=== PATIENT | male | born 1990 | race Caucasian/White ===

== ENCOUNTER 2018-07-17 10:46 | Emergency (ER) | payer BC ==
[~2018-07-17] VITALS: Ht 167.6 cm; Wt 109.1 kg
[2018-07-17] MEDS ORDERED: NS 1,000 ML IV SCH (11:59)
[2018-07-17] MEDS ORDERED: ASPIRIN 81 MG CHEW TABLET PO ONE (12:00)
[2018-07-17 12:14] LABS: BASO % 0.5 % (0.0-1.0); EOS # 0.1 10^3/uL (0.0-0.50); EOS % 1.3 % (0.0-3.0); HEMATOCRIT 49.7 % (42.0-52.0); HEMOGLOBIN 17.1 g/dl (13.5-17.5); LYMPH # 1.6 10^3/uL (1.5-6.5); LYMPH % 25.7 % (24.0-44.0); MEAN CORPUSCULAR HEMOGLOBIN 28.9 pg (27.0-33.0); MEAN CORPUSCULAR HGB CONC 34.4 g/dl (32.0-36.5); MONO # 0.7 10^3/uL (0.0-0.8); MONO % 11.7 % (0.0-5.0); NEUTROPHILS # 3.8 10^3/uL (1.8-7.7); NEUTROPHILS % 60.3 % (36.0-66.0); PLATELET COUNT, AUTOMATED 236 10^3/uL (150-450); RED BLOOD COUNT 5.92 10^6/uL (4.30-6.10); WHITE BLOOD COUNT 6.2 10^3/uL (4.0-10.0)
[2018-07-17 12:25] LABS: INR 0.99; PROTHROMBIN TIME 13.2 SECONDS (12.1-14.4)
[2018-07-17 12:35] LABS: ALBUMIN 4.2 GM/DL (3.2-5.2); ALT/SGPT 52 U/L (12-78); BILIRUBIN,DIRECT 0.1 MG/DL (0.0-0.2); BILIRUBIN,TOTAL 0.5 MG/DL (0.2-1.0); BLOOD UREA NITROGEN 13 MG/DL (7-18); CALCIUM LEVEL 8.7 MG/DL (8.5-10.1); CARBON DIOXIDE LEVEL 26 MEQ/L (21-32); CHLORIDE LEVEL 106 MEQ/L (98-107); CPK CREATINE PHOSPHOKINASE 89 U/L (39-308); CREATININE FOR GFR 0.94 MG/DL (0.70-1.30); FREE T4 0.95 NG/DL (0.76-1.46); GLOMERULAR FILTRATION RATE > 60.0 (>60); GLUCOSE, FASTING 88 MG/DL (70-100); MB/CK RELATIVE INDEX 2.13 (< OR =4); POTASSIUM SERUM 3.9 MEQ/L (3.5-5.1); SODIUM LEVEL 139 MEQ/L (136-145); THYROID STIMULATING HORMONE 0.843 uIU/ML (0.358-3.740); TOTAL PROTEIN 7.4 GM/DL (6.4-8.2); TROPONIN I < 0.02 NG/ML (< 0.10)
[2018-07-17 13:01] VITALS: BP 134/75
--- NOTE | 2018-07-17 13:43 | REP ---
Portable chest, AP view, the patient sitting, 12:00 p.m.: There are no comparisons. The lung bolanos are clear. The cardiac size is normal. The wilmar, mediastinum, and skeletal structures are unremarkable. Impression: Negative portable chest. Electronically Signed by Elias Solitario MD 07/17/2018 01:35 P
--- NOTE | 2018-07-17 17:57 | ECGEPIP ---
Stationary ECG Study [facility] - ED Test Date: 2018-07-17 Pat Name: JOE DAY Department: Room: - Gender: M Dimension Specification Inspector: ELLEN : 1990 Requested By: Rick Araujo Order Number: [id number] Reading MD: Sabi Watkins Measurements Intervals [place] Rate: 74 P: 21 MI: 150 QRS: -8 QRSD: 97 T: -9 QT: 338 QTc: 377 Interpretive Statements SINUS RHYTHM MODERATE VOLTAGE CRITERIA FOR LVH, CONSIDER NORMAL VARIANT EARLY REPOLARIZATION NO PRIOR FOR COMPARISON Electronically Signed On 07-17-2018 17:56:54 EST by Sabi Watkins
== END 2018-07-17 13:06 | disposition home or self-care (01) ==
LOC: M ED 10:46
DX: R00.2 Palpitations (principal)

== ENCOUNTER 2020-06-14 00:04 | Emergency (ER) | payer BC ==
[~2020-06-14] VITALS: Ht 167.6 cm; Wt 97.9 kg
[2020-06-14] MEDS ORDERED: ZONI50CA11 PO (00:12)
[2020-06-14] MEDS ORDERED: LISI10TA22 PO (00:12)
[2020-06-14] MEDS ORDERED: ZONI25CA13 PO (00:12)
--- OUTSIDE RECORDS SUMMARY | 2020-06-14 00:15 | CCD | Continuity of Care Document ---
Author Author Mik EMANUEL M.D. Organization Unknown Address [address] [place] [address] Phone [phone] Care Team Providers Care Water Systems Engineer Name Role Phone Robert Segovia DIRECTOR PROJECT MANAGEMENT-C AUTM [phone] Problems Active Problems Provider Date Headache Melonie Emanuel M.D. Onset: 08/25/2019 Social History Type Date Description Comments Sex Unknown Allergies, Adverse Reactions, Alerts Description No Known Drug Allergies Medications Active Medications SIG Qnty Indications Ordering Provide r Date Imitrex 50mg Tablets take 1 tab at onset of headache; may repeat once after 2 hours if no relief 9tabs Melonie Emanuel M.D. 10/26/2019 Zonisamide 25mg Capsules 1 tab by mouth nightly x 1 week, then 1 tab twice a day x 1 week, then 1 tab morning and 2 tabs nightly 42caps Melonie Emanuel M.D. 10/26/2019 Zonisamide 50mg Capsules 1 by mouth twice a day 60caps Melonie Emanuel M.D. 10/26/2019 Immunizations Description No Information Available Vital Signs Description No Information Available Results Description No Information Available Procedures Date Code Description Status 11/13/2019 46318 Magnetic Resonance Angiography N jojo W/O Contrast Materials Completed 11/13/2019 00885 Magnetic Resonance Angiography N jojo W/O Contrast Materials Completed 11/13/2019 45313 Magnetic Resonance Angiogtaphy H ead W/O Contrast Material(S) Completed 11/13/2019 66964 Magnetic Resonance Angiogtaphy H ead W/O Contrast Material(S) Completed Medical Devices Description No Information Available Encounters Type Date Location Provider Dx Diagnosis Office Visit 04/16/2020 7:00a Main office - [place] E[place] M.[place]. R42 Dizziness and giddiness G43.809 Other migraine, not intracta ble, without status migrainosus M54.81 Occipital neuralgia Office Visit 12/28/2019 8:00a Main office - [place] Melonie Emanuel M.D. R42 Dizziness and giddiness G43.809 Other migraine, not intracta ble, without status migrainosus M54.81 Occipital neuralgia D35.2 Benign neoplasm of pituitary gland Office Visit 10/24/2019 2:45p Main office - [place] Melonie Emanuel M.D. R42 Dizziness and giddiness G47.00 Insomnia, unspecified G43.809 Other migraine, not intracta ble, without status migrainosus I95.1 Orthostatic hypotension E23.6 Other disorders of pituitary gland Assessments Date Code Description Provider 04/16/2020 R42 Dizziness and giddiness Melonie L archana, M.DDustin 04/16/2020 G43.809 Other migraine, not intractable, without status migrainosus Melonie Jenae, M.DDustin 04/16/2020 M54.81 Occipital neuralgia Melonie Jenae , M.DDustin 12/28/2019 R42 Dizziness and giddiness Melonie L archana, M.DDustin 12/28/2019 G43.809 Other migraine, not intractable, without status migrainosus Melonie Jenae, M.D. 12/28/2019 M54.81 Occipital neuralgia Melonie Jenae , M.D. 12/28/2019 D35.2 Benign neoplasm of pituitary gla nd Melonie Emanuel M.DDustin 11/13/2019 R42 Dizziness and giddiness Luisito [place].DDustin 11/13/2019 R42 Dizziness and giddiness MRI 11/13/2019 G43.809 Other migraine, not intractable, without status migrainosus Yadiel Emanuel M.DDustin 11/13/2019 G43.809 Other migraine, not intractable, without status migrainosus MRI 10/24/2019 R42 Dizziness and giddiness Melonie L archana, M.DDustin 10/24/2019 G47.00 Insomnia, unspecified Melonie Lat jessica, M.DDustin 10/24/2019 G43.809 Other migraine, not intractable, without status migrainosus Melonie Jenae, M.D. 10/24/2019 I95.1 Orthostatic hypotension Melonie magaña M.D. 10/24/2019 E23.6 Other disorders of pituitary gla nd Melonie Emanuel M.D. Plan of Treatment No Information Available Functional Status Description No Information Available Mental Status Description No Information Available Referrals Refer to Dr Reason for Referral Status Appt Date Harry Ford M.D. QUESTIONABLE PAPILLEDEMA Created [address] [place] [address] [phone] Created
--- OUTSIDE RECORDS SUMMARY | 2020-06-14 00:15 | CCD | Continuity of Care Document ---
Author Author Mik EMANUEL M.D. Organization Unknown Address [address] [place] [address] Phone [phone] Care Team Providers Care Custom Leather Products Maker Name Role Phone Robert Segovia RESIN FILTERER-Riana AUTM [phone] Problems Active Problems Provider Date Headache Melonie [...] Available Results Description No Information Available Procedures Description No Information Available Medical Devices Description No Information Available Encounters Type Date Location Provider Dx Diagnosis Office Visit 06/04/2020 4:15p Main office - [place] E[place] M.[place]. 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 R42 Dizziness and giddiness G43.809 Other migraine, not intracta ble, without status migrainosus M54.81 Occipital neuralgia Office Visit 12/28/2019 8:00a Main office - [place] Melonie Emanuel M.D. 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 04/16/2020 G43.809 Other migraine, not intractable, without status migrainosus Melonie Jenae, M.DDustin 04/16/2020 M54.81 Occipital neuralgia Melonie Jenae , M.DDustin 12/28/2019 R42 Dizziness and giddiness Melonie L archana, M.D. 12/28/2019 G43.809 Other migraine, not intractable, without status migrainosus Melonie Jenae, M.DDustin 12/28/2019 M54.81 Occipital neuralgia Melonie Jenae , M.DDustin 12/28/2019 D35.2 Benign neoplasm of pituitary gla nd Melonie Emanuel M.D. Plan of Treatment Future Appointment(s):* 08/29/2020 7:00 am - Melonie Emanuel M.D. at Main office - [place] Functional Status Description No Information Available Mental Status Description No Information Available Referrals Description No Information Available
--- OUTSIDE RECORDS SUMMARY | 2020-06-14 00:15 | CCD | Continuity of Care Document ---
Author Author Mik EMANUEL M.D. Organization Unknown Address [address] [place] [address] Phone [phone] Care Team Providers Care Laboratory Secretary Name Role Phone Robert Segovia ABDOUL-Riana AUTM [phone] Problems Active Problems Provider Date Headache Melonie [...] Office Visit 04/16/2020 7:00a Main office - [place] Emanuel M.D. R42 Dizziness and giddiness G43.809 Other migraine, not intracta ble, without status migrainosus M54.81 Occipital neuralgia Office Visit 12/28/2019 8:00a Main office - [place] E[place] M.D. R42 Dizziness and giddiness G43.809 Other migraine, not intracta ble, without status migrainosus M54.81 Occipital neuralgia D35.2 Benign neoplasm of pituitary gland Assessments Date Code Description Provider 04/16/2020 R42 Dizziness and giddiness Melonie magaña M.D. 04/16/2020 G43.809 Other migraine, not intractable, without status migrainosus Kayla HerreraDDustin 04/16/2020 M54.81 Occipital neuralgia Melonie Emanuel M.D. 12/28/2019 R42 Dizziness and giddiness Melonie magaña M.D. 12/28/2019 G43.809 Other migraine, not intractable, without status migrainosus Melonie Emanuel M.D. 12/28/2019 M54.81 Occipital neuralgia Melonie Emanuel M.D. 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 Plan of Treatment Future Appointment(s):* 08/29/2020 7:00 am - Melonie Emanuel M.D. at Main office - [place] Functional Status Description No Information Available Mental Status Description No Information Available Referrals Description No Information Available
--- OUTSIDE RECORDS SUMMARY | 2020-06-14 00:15 | CCD | Continuity of Care Document ---
Author Author Mik EMANUEL M.D. Organization Unknown Address [address] [place] [address] Phone [phone] Care Team Providers Care Bill Recapitulation Clerk Name Role Phone Robert Segovia DIVING FISHER-C AUTM [phone] Problems Active Problems Provider Date Headache Melonie [...] Available Procedures Date Code Description Status 11/13/2019 72836 Magnetic Resonance Angiography N jojo W/O Contrast Materials Completed 11/13/2019 30582 Magnetic Resonance Angiography N jojo W/O Contrast Materials Completed 11/13/2019 58644 Magnetic Resonance Angiogtaphy H ead W/O Contrast Material(S) Completed 11/13/2019 57769 Magnetic Resonance Angiogtaphy H ead W/O Contrast Material(S) Completed 10/18/2019 47967 Sympathetic Skin Responses Compl eted 10/18/2019 61539 Sympathetic Skin Responses Compl eted 10/18/2019 38483 Test Autonomic Nervous System, C ardiovagal Innervation Completed 10/18/2019 24364 Test Autonomic Nervous System, C ardiovagal Innervation Completed Medical Devices Description No Information Available Encounters Type Date Location Provider Dx Diagnosis Office Visit 12/28/2019 8:00a Main office - [place] Melonie Emanuel M.D. R42 Dizziness and giddiness G43.809 Other migraine, not intracta ble, without status migrainosus M54.81 Occipital neuralgia D35.2 Benign neoplasm of pituitary gland Office Visit 10/24/2019 2:45p Main office - [place] Melonie Emanuel M.D. 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 10/24/2019 G47.00 Insomnia, unspecified Melonie Lat jessica, M.DDustin 10/24/2019 G43.809 Other migraine, not intractable, without status migrainosus Melonie Jenae, M.D. 10/24/2019 I95.1 Orthostatic hypotension Melonie L acrhana, M.DDustin 10/24/2019 E23.6 Other disorders of pituitary gla nd Melonie Jenae, M.DDustin 10/18/2019 I95.1 Orthostatic hypotension Melonie magaña M.D. 10/18/2019 I95.1 Orthostatic hypotension Ans/VS 10/18/2019 R00.0 Tachycardia, unspecified Melonie Emanuel M.D. 10/18/2019 R00.0 Tachycardia, unspecified Ans/VS Plan of Treatment No Information Available Functional Status Description No Information Available Mental Status Description No Information Available Referrals Refer to Dr Reason for Referral Status Appt Date Harry Ford M.D. QUESTIONABLE PAPILLEDEMA Created [address] [facility] [address] [place] [address] [phone] Created
--- OUTSIDE RECORDS SUMMARY | 2020-06-14 00:15 | CCD ---
Author Author [facility] Organization [facility] Address Unknown Phone Unavailable Care Team Providers Care Reconsignment Clerk Name Role Phone ETHAN CARTAGENA MD Unavailable Unavailable ETHAN CARTAGENA MD Unavailable Unavailable ETHAN CARTAGENA MD Unavailable Unavailable ETHAN CARTAGENA MD Unavailable Unavailable ETHAN CARTAGENA MD Unavailable Unavailable ETHAN CARTAGENA MD Unavailable Unavailable ETHAN CARTAGENA MD Unavailable Unavailable ETHAN CARTAGENA MD Unavailable Unavailable ETHAN CARTAGENA MD Unavailable Unavailable ETHAN CARTAGENA MD Unavailable Unavailable ETHAN CARTAGENA MD Unavailable Unavailable ETHAN CATRAGENA MD Unavailable Unavailable ETHAN CARTAGENA MD Unavailable Unavailable ETHAN CARTAGENA MD Unavailable Unavailable ETHAN CARTAGENA MD Unavailable Unavailable ETHAN CARTAGENA MD Unavailable Unavailable ETHAN CARTAGENA MD Unavailable Unavailable ETHAN CARTAGENA MD Unavailable Unavailable ETHAN CARTAGENA MD Unavailable Unavailable ETHAN CARTAGENA MD Unavailable Unavailable ETHAN CARTAGENA MD Unavailable Unavailable ETHAN CARTAGENA MD Unavailable Unavailable ETHAN CARTAGENA MD Unavailable Unavailable ETHAN CARTAGENA MD Unavailable Unavailable ETHAN CARTAGENA MD Unavailable Unavailable ETHAN CARTAGENA MD Unavailable Unavailable ETHAN CARTAGENA MD Unavailable Unavailable ETHAN CARTAGENA MD Unavailable Unavailable ETHAN CARTAGENA MD Unavailable Unavailable ETHAN CARTAGENA MD Unavailable Unavailable ETHAN CARTAGENA MD Unavailable Unavailable ETHAN CARTAGENA MD Unavailable Unavailable ETHAN CARTAGENA MD Unavailable Unavailable ETHAN CARTAGENA MD Unavailable Unavailable ETHAN CARTAGENA MD Unavailable Unavailable ETHAN CARTAGENA MD Unavailable Unavailable ETHAN CARTAGENA MD Unavailable Unavailable ETHAN CARTAGENA MD Unavailable Unavailable ETHAN CARTAGENA MD Unavailable Unavailable ETHAN CARTAGENA MD Unavailable Unavailable Viviana Conroy MD Unavailable Unavailable Viviana Conroy MD Unavailable Unavailable Viviana Conroy MD Unavailable Unavailable Viviana Conroy MD Unavailable Unavailable Viviana Conroy MD Unavailable Unavailable Viviana Conroy MD Unavailable Unavailable Viviana Conroy MD Unavailable Unavailable Viviana Conroy MD Unavailable Unavailable Viviana Conroy MD Unavailable Unavailable Rafiq O Fawadah Unavailable Unavailable Viviana Conroy MD Unavailable Unavailable Viviana Conroy MD Unavailable Unavailable Viviana Conroy MD Unavailable Unavailable Viviana Conroy MD Unavailable Unavailable Viviana Conroy MD Unavailable Unavailable Viviana Conroy MD Unavailable Unavailable Viviana Conroy MD Unavailable Unavailable Viviana Cornoy MD Unavailable Unavailable Viviana Conroy MD Unavailable Unavailable Viviana Conroy MD Unavailable Unavailable Viviana Conroy MD Unavailable Unavailable Viviana Conroy MD Unavailable Unavailable Viviana Conroy MD Unavailable Unavailable Viviana Conroy MD Unavailable Unavailable Viviana Conroy MD Unavailable Unavailable Viviana Conroy MD Unavailable Unavailable Viviana Conroy MD Unavailable Unavailable Viviana Conroy MD Unavailable Unavailable Viviana Conroy MD Unavailable Unavailable Viviana Conroy MD Unavailable Unavailable Viviana Conroy MD Unavailable Unavailable Viviana Conroy MD Unavailable Unavailable Viviana Conroy MD Unavailable Unavailable Viviana Conroy MD Unavailable Unavailable Viviana Conroy MD Unavailable Unavailable Viviana Conroy MD Unavailable Unavailable Viviana Conroy MD Unavailable Unavailable Viviana Conroy MD Unavailable Unavailable Viviana Conroy MD Unavailable Unavailable Viviana Conroy MD Unavailable Unavailable Viviana Conroy MD Unavailable Unavailable Viviana Conroy MD Unavailable Unavailable Viviana Conroy MD Unavailable Unavailable Viviana Conroy MD Unavailable Unavailable Viviana Conroy MD Unavailable Unavailable Viviana Conroy MD Unavailable Unavailable Viviana Conroy MD Unavailable Unavailable Viviana Conroy MD Unavailable Unavailable Viviana Conroy MD Unavailable Unavailable Viviana Conroy MD Unavailable Unavailable Viviana Conroy MD Unavailable Unavailable Viviana Conroy MD Unavailable Unavailable Viviana Conroy MD Unavailable Unavailable Viviana Conroy MD Unavailable Unavailable Viviana Conroy MD Unavailable Unavailable Viviana Conroy MD Unavailable Unavailable Viviana Conroy MD Unavailable Unavailable Viviana Conroy MD Unavailable Unavailable Viviana Conroy MD Unavailable Unavailable Viviana Conroy MD Unavailable Unavailable Viviana Conroy MD Unavailable Unavailable Viviana Conroy MD Unavailable Unavailable Viviana Conroy MD Unavailable Unavailable Viviana Conroy MD Unavailable Unavailable Viviana Conroy MD Unavailable Unavailable Viviana Conroy MD Unavailable Unavailable Viviana Conroy MD Unavailable Unavailable Viviana Conroy MD Unavailable Unavailable Viviana Conroy MD Unavailable Unavailable Viviana Conroy MD Unavailable Unavailable Viviana Conroy MD Unavailable Unavailable Viviana Conroy MD Unavailable Unavailable Viviana Conroy MD Unavailable Unavailable Viviana Conroy MD Unavailable Unavailable Viviana Conroy MD Unavailable Unavailable Viviana Conroy MD Unavailable Unavailable DAVID IV, L PATTI VEHICLE DISMANTLER Unavailable Unavailable DAVID IV, L PATTI VEHICLE DISMANTLER Unavailable Unavailable DAVID IV, L PATTI VEHICLE DISMANTLER Unavailable Unavailable DAVID IV, L PATTI VEHICLE DISMANTLER Unavailable Unavailable DAVID IV, L PATTI VEHICLE DISMANTLER Unavailable Unavailable DAVID IV, L PATTI VEHICLE DISMANTLER Unavailable Unavailable DAVID IV, L PATTI VEHICLE DISMANTLER Unavailable Unavailable DAVID IV, L PATTI VEHICLE DISMANTLER Unavailable Unavailable DAVID IV, L PTATI VEHICLE DISMANTLER Unavailable Unavailable DAVID IV, L PATTI VEHICLE DISMANTLER Unavailable Unavailable DAVID IV, L PATTI VEHICLE DISMANTLER Unavailable Unavailable DAVID IV, L PATTI VEHICLE DISMANTLER Unavailable Unavailable DAVID IV, L PATTI VEHICLE DISMANTLER Unavailable Unavailable DAVID IV, L PATTI VEHICLE DISMANTLER Unavailable Unavailable DAVID IV, L PATTI VEHICLE DISMANTLER Unavailable Unavailable DAVID IV, L PATTI VEHICLE DISMANTLER Unavailable Unavailable DAVID IV, L PATTI VEHICLE DISMANTLER Unavailable Unavailable DAVID IV, L PATTI VEHICLE DISMANTLER Unavailable Unavailable DAVID IV, L PATTI VEHICLE DISMANTLER Unavailable Unavailable DAVID IV, L PATTI VEHICLE DISMANTLER Unavailable Unavailable DAVID IV, L PATTI VEHICLE DISMANTLER Unavailable Unavailable DAVID IV, L PATTI VEHICLE DISMANTLER Unavailable Unavailable DAVID IV, L PATTI VEHICLE DISMANTLER Unavailable Unavailable DAVID IV, L PATTI VEHICLE DISMANTLER Unavailable Unavailable DAVID IV, L PATTI VEHICLE DISMANTLER Unavailable Unavailable DAVID IV, L PATTI VEHICLE DISMANTLER Unavailable Unavailable DAVID IV, L PATTI VEHICLE DISMANTLER Unavailable Unavailable DAVID IV, L PATTI VEHICLE DISMANTLER Unavailable Unavailable DAVID IV, L PATTI VEHICLE DISMANTLER Unavailable Unavailable DAVID IV, L PATTI VEHICLE DISMANTLER Unavailable Unavailable DAVID IV, L PATTI VEHICLE DISMANTLER Unavailable Unavailable DAVID IV, L PATTI VEHICLE DISMANTLER Unavailable Unavailable Edward Capellan MD Unavailable Unavailable Edward Capellan MD Unavailable Unavailable Re-disclosure Warning The records that you are about to access may contain information from federally-assisted alcohol or drug abuse programs. If such information is present, then the following federally mandated warning applies: This information has been disclosed to you from records protected by federal confidentiality rules (42 CFR part 2). The federal rules prohibit you from making any further disclosure of this information unless further disclosure is expressly permitted by the written consent of the person to whom it pertains or as otherwise permitted by 42 CFR part 2. A general authorization for the release of medical or other information is NOT sufficient for this purpose. The Federal rules restrict any use of the information to criminally investigate or prosecute any alcohol or drug abuse patient.The records that you are about to access may contain highly sensitive health information, the redisclosure of which is protected by Article 27-F of the [facility] Public Health law. If you continue you may have access to information: Regarding HIV / AIDS; Provided by facilities licensed or operated by the [facility] Office of Mental Health; or Provided by the [facility] Office for People With Developmental Disabilities. If such information is present, then the following [facility] mandated warning applies: This information has been disclosed to you from confidential records which are protected by state law. State law prohibits you from making any further disclosure of this information without the specific written consent of the person to whom it pertains, or as otherwise permitted by law. Any unauthorized further disclosure in violation of state law may result in a fine or long-term sentence or both. A general authorization for the release of medical or other information is NOT sufficient authorization for further disc losure. Family History Family Member Name Family Member Gender Family Member Status Date o f Status Description Data Source(s) Unknown Male Problem [facility] ([facility]) Encounters Encounter Providers Location Date Indications Data Source(s ) Office Visit Attender: ETHAN CARTAGENA MD Main office - [facility] n 06/04/2020 03:15:00 PM EST [facility] ([facility]) Outpatient Attender: ETHAN CARTAGENA MD Main office - [facility] n 04/16/2020 06:00:00 AM EST [facility] ([facility]) Outpatient Attender: ETHAN CARTAGENA MD Main office - [facility] n 12/28/2019 08:00:00 AM EDT [facility] ([facility]) Outpatient Attender: ETHAN CARTAGENA MD Main office - [facility] n 10/24/2019 02:45:00 PM EDT [facility] ([facility]) Outpatient [facility]PS[facility]ORT-LABEJN 10/19/2019 08:04:00 PM EDT [facility] Outpatient Attender: Jayro Conroy MD ED-LAB 03:53:00 PM EDT - 10/19/2019 03:54:[address] [facility] HEADACHES Patient discharged. Emergency Attender: Dong Capellan MD CPSCAORT-ED 08/07/19 08:52:00 PM EDT - 08/07/2019 10:57:00 PM EDT NAUSEA, DIARRHEA, ABDOMINAL PAIN [facility] NAUSEA, DIARRHEA, ABDOMINAL PAIN Patient discharged. Outpatient Attender: PATTI SEGOVIA IV ED-[facility]EDWPCP 2019 07:37:00 AM EST - 07/04/2019 07:38:[address] [facility] Patient discharged. Medications Medication Brand Name Start Date Product Form Dose Route Admi nistrative Instructions Pharmacy Instructions Status Indications Reaction Description Data Source(s) 50 mg 04/06/2020 12:00:00 AM EST capsule 60 TAKE ONE CAPSULE BY MOUTH TWICE A DAY TAKE ONE CAPSULE BY MOUTH TWICE A DAY SOLD: 04/14/2020 [facility] 50 mg 04/06/2020 12:00:00 AM EST capsule 60 TAKE ONE CAPSULE BY MOUTH TWICE A DAY TAKE ONE CAPSULE BY MOUTH TWICE A DAY SOLD: 05/13/2020 [facility] 50 mg 02/14/2020 12:00:00 AM EDT capsule 60 TAKE ONE CAPSULE BY MOUTH TWICE A DAY TAKE ONE CAPSULE BY MOUTH TWICE A DAY SOLD: 03/14/2020 [facility] 50 mg 02/14/2020 12:00:00 AM EDT capsule 60 TAKE ONE CAPSULE BY MOUTH TWICE A DAY TAKE ONE CAPSULE BY MOUTH TWICE A DAY SOLD: 02/14/2020 [facility] 50 mg 10/27/2019 12:00:00 AM EDT tablet 9 TAKE ONE TABLET BY MOUTH AT ONSET OF HEADACHE, MAY REPEAT ONCE AFTER 2 HOURS IF NO RELIEF MAXIMUM DAILY DOSE = 2 TABLETS TAKE ONE TABLET BY MOUTH AT ONSET OF HEA DACHE, MAY REPEAT ONCE AFTER 2 HOURS IF NO RELIEF MAXIMUM DAILY DOSE = 2 TABLETS SOLD: 02/24/2020 [facility] 25 mg 10/27/2019 12:00:00 AM EDT capsule 42 TAKE ONE CAPSULE BY MOUTH NIGHTLY FOR 1 WEEK THEN 1 TWO TIMES A DAY FOR 1 WEEK THEN 1 IN THE MORNING AND 2 NIGHTLY TAKE ONE CAPSULE BY MOUTH NIGHTLY FOR 1 WEEK THEN 1 TWO TIMES A DAY FOR 1 WEEK THEN 1 IN THE MORNING AND 2 NIGHTLY SOLD: 10/30/2019 [facility] 50 mg 10/27/2019 12:00:00 AM EDT capsule 60 TAKE ONE CAPSULE BY MOUTH TWICE A DAY TAKE ONE CAPSULE BY MOUTH TWICE A DAY SOLD: 01/15/2020 [facility] 50 mg 10/27/2019 12:00:00 AM EDT capsule 60 TAKE ONE CAPSULE BY MOUTH TWICE A DAY TAKE ONE CAPSULE BY MOUTH TWICE A DAY SOLD: 10/30/2019 [facility] 50 mg 10/27/2019 12:00:00 AM EDT tablet 9 TAKE ONE TABLET BY MOUTH AT ONSET OF HEADACHE, MAY REPEAT ONCE AFTER 2 HOURS IF NO RELIEF MAXIMUM DAILY DOSE = 2 TABLETS TAKE ONE TABLET BY MOUTH AT ONSET OF HEA DACHE, MAY REPEAT ONCE AFTER 2 HOURS IF NO RELIEF MAXIMUM DAILY DOSE = 2 TABLETS SOLD: 10/30/2019 [facility] Sumatriptan 50 MG Oral Tablet [Imitrex] Imitrex 10/26/2019 12:00:0 0 AM EDT active [facility] ([facility]) zonisamide 50 MG Oral Capsule Zonisamide 10/26/2019 12:00:00 AM EDT ORAL active [facility] ([facility]) zonisamide 25 MG Oral Capsule Zonisamide 10/26/2019 12:00:00 AM EDT ORAL active [facility] ([facility] 10 mg 09/05/2019 12:00:00 AM EDT tablet 30 TAKE ONE TABLET BY MOUTH EVERY DAY TAKE ONE TABLET BY MOUTH EVERY DAY SOLD: 09/18/2019 [facility] 10 mg 09/05/2019 12:00:00 AM EDT tablet 30 TAKE ONE TABLET BY MOUTH EVERY DAY TAKE ONE TABLET BY MOUTH EVERY DAY SOLD: 12/25/2019 [facility] 10 mg 09/05/2019 12:00:00 AM EDT tablet 30 TAKE ONE TABLET BY MOUTH EVERY DAY TAKE ONE TABLET BY MOUTH EVERY DAY SOLD: 11/16/2019 [facility] 10 mg 09/05/2019 12:00:00 AM EDT tablet 30 TAKE ONE TABLET BY MOUTH EVERY DAY TAKE ONE TABLET BY MOUTH EVERY DAY SOLD: 04/14/2020 [facility] 10 mg 09/05/2019 12:00:00 AM EDT tablet 30 TAKE ONE TABLET BY MOUTH EVERY DAY TAKE ONE TABLET BY MOUTH EVERY DAY SOLD: 03/14/2020 [facility] 10 mg 09/05/2019 12:00:00 AM EDT tablet 30 TAKE ONE TABLET BY MOUTH EVERY DAY TAKE ONE TABLET BY MOUTH EVERY DAY SOLD: 05/13/2020 [facility] 25 mg 08/25/2019 12:00:00 AM EDT tablet 9 TAKE ONE TABLET BY MOUTH AT ONSET OF HEADACHE, MAY REPEAT IN TWO HOURS IF NECESSARY TAKE ONE TABLET BY MOUTH AT ONSET OF HEADACHE, MAY REPEAT IN TWO HOURS IF NECESSARY SOLD: 09/18/2019 [facility] 25 mg 08/25/2019 12:00:00 AM EDT tablet 9 TAKE ONE TABLET BY MOUTH AT ONSET OF HEADACHE, MAY REPEAT IN TWO HOURS IF NECESSARY TAKE ONE TABLET BY MOUTH AT ONSET OF HEADACHE, MAY REPEAT IN TWO HOURS IF NECESSARY SOLD: 08/25/2019 [facility] Sumatriptan 25 MG Oral Tablet [Imitrex] Imitrex 08/25/2019 12:00:0 0 AM EDT completed [facility] ([facility]) 10 mg 08/08/2019 12:00:00 AM EDT capsule 25 TAKE ONE CAPSULE BY MOUTH EVERY 6 HOURS NEEDED TAKE ONE CAPSULE BY MOUTH EVERY 6 HOURS NEEDED SOLD : 08/25/2019 [facility] 4 mg 08/08/2019 12:00:00 AM EDT tablet,disintegrating 1 2 DISSOLVE ONE TABLET ON TONGUE FOUR TIMES A DAY NEEDED DISSOLVE ONE TABLET ON TONGUE FOUR TIMES A DAY NEEDED SOLD: 08/25/2019 [facility] 10 mg 07/18/2019 12:00:00 AM EST tablet 30 TAKE ONE TABLET BY MOUTH EVERY DAY TAKE ONE TABLET BY MOUTH EVERY DAY SOLD: 07/18/2019 [facility] Insurance Providers Payer name Policy type / Coverage type Policy ID Covered constitution party ID Covered constitution party's relationship to barreto Policy [place] Plan Information [employer] [place] 302/307 [id number] SP [id number] [employer] [employer] [place] [id number] S [id number] [employer] [place] 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 SELF PAY manager rn case employed [employer] [place] [id number] S [id number] [employer] [id number] Self [id number] OTHER [id number] manager rn case employed [employer] [id number] Self [id number] [employer] [id number] Self [id number] [employer] [place] P[place] 302/307 [id number] SP [id number] Problems, Conditions, and Diagnoses Code Display Name Description Problem Type Effective Dates Data Source(s) [id number] Headache Headache Problem 08/25/2019 12:00:00 AM ED T [facility] ([facility]) R51 Headache HEADACHE Diagnosis 10/19/2019 03:53:[address] [facility] I10 Essential (primary) hypertension ESSENTIAL (PRIMARY) H YPERTENSION Diagnosis 07/04/2019 07:37:00 AM [facility] G44.201 Tension-type headache, unspecified, intr actable TENSION-TYPE HEADACHE, UNSPECIFIED, INTRACTABLE Diagnosis 07/04/2019 07:37:00 AM [facility] Surgeries/Procedures Procedure Description Date Indications Data Source(s) Magnetic Resonance Angiogtaphy Head W/O Contrast Material(S) 11/13/2019 12:00:00 AM EDT [facility] ([facility] Magnetic Resonance Angiogtaphy Head W/O Contrast Material(S) 11/13/2019 12:00:00 AM EDT [facility] ([facility] Magnetic Resonance Angiography Neck W/O Contrast Materials 11/13/2019 12:00:00 AM [facility] ([facility] Magnetic Resonance Angiography Neck W/O Contrast Materials 11/13/2019 12:00:00 AM T [facility] ([facility] ) THYROID STIMULATING HORMONE TSH ASSAY THYROID STIM HORMONE 0 10/19/2019 12:00:00 AM [facility] ANTINUCLEAR ANTIBODIES JUANITO ANTINUCLEAR ANTIBODIES 10/19/2019 12:00: 00 AM [facility] 25 HYDROXY INCLUDES FRACTIONS IF PERFORMED VITAMIN D 25 HYDR OXY 10/19/2019 12:00:00 AM [facility] RHEUMATOID FACTOR QUANTITATIVE RHEUMATOID FACTOR QUANT 10/18 12:00:00 AM [facility] COLLECTION VENOUS BLOOD VENIPUNCTURE ROUTINE VENIPUNCTURE 12:00:00 AM [facility] SEDIMENTATION RATE RBC NON-AUTOMATED RBC SED RATE NONAUTOMAT ED 10/19/2019 12:00:00 AM [facility] BLOOD COUNT COMPLETE AUTO&AUTO DIFRNTL WBC COUNT COMPLETE CB C W/AUTO DIFF WBC 10/19/2019 12:00:00 AM [facility] COMPREHENSIVE METABOLIC PANEL COMPREHEN METABOLIC PANEL 09/22 12:00:00 AM [facility] TSTG ANS FUNCJ CARDIOVAGAL INNERVAJ PARASYMP 0 12:00:00 AM EDT [facility] ([facility] TSTG ANS FUNCJ CARDIOVAGAL INNERVAJ PARASYMP 0 12:00:00 AM EDT [facility] ([facility] ) TESTING AUTONOMIC NERVOUS SYSTEM FUNCTION 10/18/2019 1 2:00:00 AM [facility] ([facility] ) TESTING AUTONOMIC NERVOUS SYSTEM FUNCTION 10/18/2019 [facility] MRI BRAIN BRAIN STEM W/O CONTRAST MATERIAL 08/28/2019 12:00:00 AM EDT [facility] ([facility] ) MRI BRAIN BRAIN STEM W/O CONTRAST MATERIAL 08/28/2019 [facility] CT ABDOEN & PELVIS W/CONTRAST MATERIAL 08/07/2019 12:0 0:[address] [facility] Low osmolar contrast material, 300-399 mg/ml iodine concentr ation, per ml 08/07/2019 12:00:[address] [facility] URNLS DIP STICK/TABLET REAGENT AUTO MICROSCOPY 020 12:00:[address] [facility] BLOOD COUNT COMPLETE AUTO&AUTO DIFRNTL WBC COUNT 08/06 12:00:[address] [facility] MAGNESIUM 08/07/2019 12:00:00 AM [facility] C-REACTIVE PROTEIN 08/07/2019 12:00:[address] [facility] LIPASE 08/07/2019 12:00:00 AM [facility] COMPREHENSIVE METABOLIC PANEL 08/07/2019 12:00:00 AM [facility] Injection, acetaminophen, 10 mg 08/07/2019 12:00:[address] [facility] Non-covered item or service 08/07/2019 12:00:[address] [facility] Injection, morphine sulfate, up to 10 mg 08/07/2019 12 :00:[address] [facility] THERAPEUTIC INJECTION IV PUSH EACH NEW DRUG 08/07/2019 12:00:[address] [facility] THER PROPH/DX NJX IV PUSH SINGLE/1ST SBST/DRUG 020 12:00:[address] [facility] EMERGENCY DEPARTMENT VISIT HIGH/URGENT SEVERITY 2019 12:00:[address] [facility] OFFICE OUTPATIENT VISIT 10 MINUTES OFFICE/OUTPATIENT VISIT E ST 07/04/2019 12:00:[address] [facility] Results ID Date Data Source [id number] 10/23/2019 03:58:00 PM [facility] Name Value Range Interpretation Code Description Data Mia rce(s) Supporting Document(s) JUANITO Interpretation Result Negative Normal (applies to no n-numeric results) [facility] Results were obtained with the [employer] NOV A Lite HEp-2 JUANITO Kit by indirect immunofluorescence. Test performed or referred by The [address] [address] ID Date Data Source [id number] 10/23/2019 03:14:00 PM EDT [facility] Name Value Range Interpretation Code Description Data Mia rce(s) Supporting Document(s) JUANITO Interpretation Result Negative Normal (applies to no n-numeric results) [facility] Results were obtained with the [employer] NOV A Lite HEp-2 JUANITO Kit by indirect immunofluorescence. Test performed or referred by The [address] [address] ID Date Data Source [id number] 10/20/2019 10:18:00 AM EDT [facility] Value Range Interpretation Code Description Data Mia rce(s) Supporting Document(s) Vitamin D, Total 30.0-100.0 Below low normal [facility] ID Date Data Source [id number] 10/20/2019 07:35:[address] [facility] Name Value Range Interpretation Code Description Data Mia rce(s) Supporting Document(s) RF Rheumatoid Factor result 0.0-15.0 Normal (appli es to non-numeric results) [facility] Test Performed By: [facility] [address] [place] [address] Director: Shireen Shannon MD ID Date Data Source [id number] 10/19/2019 10:21:00 PM EDT [facility] Value Range Interpretation Code Description Data Mia rce(s) Supporting Document(s) Rheumatoid Factor 0.0-15.0 Normal (applies to non-numeri c results) [facility] Test Performed By: [facility] [address] [place] [address] Director: Shireen Shannon MD ID Date Data Source [id number] 10/19/2019 04:54:00 PM EDT [facility] Value Range Interpretation Code Description Data Mia rce(s) Supporting Document(s) Sodium 140 mmol/L 136-145 Normal (applies to non-numeric resul ts) [facility] Potassium 3.5-5.1 Normal (applies to non-numeric resul ts) [facility] Chloride 104 mmol/L 98-107 Normal (applies to non-numeric resul ts) [facility] Carbon Dioxide CO2 21-32 Normal (applies to non-numer ic results) [facility] Anion Gap 5.0-16.0 Normal (applies to non-numeric resul ts) [facility] BUN 24 mg/dL 7-18 Above high normal [facility] Creatinine,Serum 0.8-1.5 Normal (applies to non-numeric results) [facility] GFR >60 Normal (applies to non-numeric results) [facility] Glucose Level 94 mg/dL 60-99 Normal (applies to non-numeric re sults) [facility] Reference range is only applicable when patient is fasting Note the following drug interference: Sulfasalazine Sulfapyridine Can see falsely depressed Can see falsely elevated result with up to 17% results with up to 11% decrease in measurement increase in measurement Recommend patients be collected for this test prior to administration of either drug. Calcium 8.5-10.1 Normal (applies to non-numeric resul ts) [facility] Bilirubin,Total 0.1-1.9 Normal (applies to non-numeric results) [facility] SGOT(AST) 19 U/L 15-37 Normal (applies to non-numeric resul ts) [facility] Note the following drug interference: Sulfasalazine Sulfapyridine Can see falsely depressed Can see falsely elevated result with up to 10% results with up to 10% decrease in measurement increase in measurement Recommend patients be collected for this test prior to administration of either drug. SGPT(ALT) 47 U/L 12-78 Normal (applies to non-numeric resul ts) [facility] Note the following drug interference: Sulfasalazine Sulfapyridine Can see falsely depressed Can see falsely elevated result with up to 29% results with up to 10% decrease in measurement increase in measurement Recommend patients be collected for this test prior to administration of either drug. Alkaline Phosphatase 45 U/L 38-126 Normal (applies to non-num mauricio results) [facility] can increase Alkaline Phosp le vels up to 2 times the normal adult value. Normal values for children and adolescents are 2 to 3 times the normal adult value. Total Protein 6.0-8.2 Normal (applies to non-numeric re sults) [facility] Albumin Level 3.4-5.0 Normal (applies to non-numeric re sults) [facility] ID Date Data Source [id number] 10/19/2019 04:54:[address] [facility] Name Value Range Interpretation Code Description Data Mia rce(s) Supporting Document(s) Thyroid Stimulate Hormone TSH 0.358-3.74 No rmal (applies to non-numeric results) [facility] ID Date Data Source [id number] 10/19/2019 04:48:[address] [facility] Name Value Range Interpretation Code Description Data Mia rce(s) Supporting Document(s) White Blood Count 3.5-10.5 Normal (applies to non-numeri c results) [facility] Red Blood Count 4.30-5.70 Normal (applies to non-numeric results) [facility] Hemoglobin 13.5-17.5 Normal (applies to non-numeric resul ts) [facility] Hematocrit 38.8-50.0 Normal (applies to non-numeric resul ts) [facility] Mean Corpuscular Volume 81.2-95.1 Normal (applies to non- numeric results) [facility] Mean Corpuscular Hgb 25.6-32.2 Normal (applies to non-num mauricio results) [facility] Mean Corpuscular Hgb Conc 32.0-36.0 Normal (applies to no n-numeric results) [facility] Red Cell Distribution Width 11.8-15.6 Normal (appli es to non-numeric results) [facility] Platelet Count 212 x10 3/uL 150-450 Normal (applies to non-numeric results) [facility] Mean Platelet Volume 9.4-12.4 Normal (applies to non-num mauricio results) [facility] Neutrophils% (Auto) 31.0-71.0 Normal (applies to non-nume ana results) [facility] Lymphocytes% (Auto) 20.0-55.0 Normal (applies to non-nume ana results) [facility] Monocytes% (Auto) 4.0-12.0 Normal (applies to non-numeri c results) [facility] Eosinophils% (Auto) 1.0-8.0 Normal (applies to non-nume ana results) [facility] Basophils% (Auto) 0.0-2.0 Normal (applies to non-numeri c results) [facility] Immature Granulocytes% (Auto) 0.0-2.0 Normal (chaz lies to non-numeric results) [facility] Neutrophils# (Auto) 1.50-6.20 Normal (applies to non-nume ana results) [facility] Lymphocytes# (Auto) 1.20-4.00 Normal (applies to non-nume ana results) [facility] Monocytes# (Auto) 0.00-0.90 Normal (applies to non-numeri c results) [facility] Eosinophils# (Auto) 0.00-0.50 Normal (applies to non-nume ana results) [facility] Basophils# (Auto) 0.00-0.20 Normal (applies to non-numeri c results) [facility] Immature Granulocytes# (Auto) 0.00-7.00 No rmal (applies to non-numeric results) [facility] ID Date Data Source [id number] 10/19/2019 04:48:[address] [facility] Name Value Range Interpretation Code Description Data Mia rce(s) Supporting Document(s) Erythrocyte Sedimentation rate 1 mm/hr 0-15 N ormal (applies to non-numeric results) [facility] ID Date Data Source [id number] 08/07/2019 08:52:[address] [facility] Name: MIK TREVINO [facility] Rec #: [id number] 57 : 1990 Age/Sex: 28M Date of Service: 08/07/19 DISPOSITION SUMMARY Discharge Summary [facility] Name:Mik Trevino Emergency Department Age:28 yrs Sex:Male :1990 Arrival:08/07/2019 20:52 Departure Date08/07/2019 Departure Time22:57 Private MD:None, Primary Care Provider- Outcome: Discharge Location: Home/Self Care Condition: Good Chief Complaint: Nausea, Diarrhea, Abdominal Pain Diagnosis: Abdominal pain, Gastroenteritis Prescriptions: Bentyl 10 mg Oral Capsule - take 1 capsule by ORAL route every 6 hours As needed; 25 capsule, ondansetron 4 mg Oral - take 4 milligram by SUBLINGUAL route 4 times per day As needed; 12 tablet Custom Notes: <span>Today you were seen in the emergency department for your <span>abdominal</span>. We did <span>labs</span><span> as well as a CAT scan</span>. Your results were not concerning for a medical emergency, because of this you can be discharged to follow-up with your primary care physician tomorrow, or as soon as you are able to. As we discussed please return to the emergency department for any new, worsening, or continued symptoms. </span> Attending Physician: Dong Capellan MD Private MD: None, Primary Care Provider- Mid Level Provider: Orders: Cbc With Auto Differential, COMMET, C-Reactive Protein,Wide Range, Magnesium, Lipase, UA., Ct Abdomen & Pelvis with Con, Ofirmev, NS 0.9%, Collect Urine - Clean Catch, morphine, Urinalysis Auto w/Microscopy, Dicyclomine Discharge Instruction: Discharge Summary Sheet, Abdominal Pain, Adult, [id number], Medication Reconciliation Name Value Range Interpretation Code Description Data Mia rce(s) Supporting Document(s) ID Date Data Source [id number] 08/07/2019 08:52:00 PM EDT [facility] Name: MIK TREVINO [facility] Rec #: [id number] 59 : 1990 Age/Sex: 28M Date of Service: 08/07/19 PHYSICIAN CHART Physician Documentation [facility] Name: Mik Trevino Age: 28 yrs Sex: Male : 1990 Arrival Date: 08/07/2019 Time: 20:52 Bed 7 Private MD: None, Primary Care Provider- ED Physician Dong Capellan HPI: 08/06 21:15 This 28 yrs old Male presents to ER via [facility] with complaints of Nausea, Diarrhea, Abdominal Pain. 21:15 Patient 28-year-old male history of hypertension presenting aaq w ith nausea vomiting and abdominal pain. Patient states that approximately 4 PM he was driving home from work when he suddenly developed abdominal pain. He describes as periumbilical, stabbing, nonradiating pain made better with the medication nothing making it worse. He got home he had several episodes of watery diarrhea and then began vomiting at around 6:30 PM. No blood noted in the vomit or the diarrhea. Denies any recent travel, new restaurants or foods. No sick contacts. Patient's pain is improved after Toradol was given by EMS he was also given Zofran as well. Never had pain like this before.. Historical: - Allergies: No known drug Allergies; - Home Meds: 1. lisinopril 10 mg Oral tab 1 tab once daily (Last dose: Unknown) - PMHx: Hypertensive disorder; - PSHx: None; - Med Reconciliation:: Green Alert: The patient's med list is complete to the best of the nurse's/provider's knowledge. Medications reviewed, completed by nurse using patient's med list. - Immunization history: unknown. - Advance directive: There is no existing advanced directive. Information offered. - Family History:: mother : unknown medical history. Father : unknown medical history. - Social History: Smoking status (Tobacco): Patient states he/she has never smoked tobacco. Preferred Language: Latvian. ROS: 21:16 Constitutional: A 10 point review of systems was completed aaq and negative with the exception of what is documented in the HPI. Exam: 21:16 Constitutional: General: Well-appearing in no obvious aaq distress Head: Normocephalic, atraumatic Neck: Supple, no meningismus Chest: Atraumatic, nontende r Cardiovascular: Normal rate and rhythm, no murmurs rubs or gallops Pulmonary: No respiratory distress, satting well on room air, clear to auscultation bilaterally Abdomen/: Soft, significant left lower quadrant tenderness without rebound or guarding Extremities: Nontender, full range of motion Neuro: Alert and oriented Skin: No rashes Vital Signs: 21:03 BP 113 / 69; Pulse 99; Resp 18; Temp 97.8; Pulse Ox 99% on kl1 R/A; Weight 99.79 kg; Height 5 ft. 6 in. (167.64 cm); 22:19 BP 127 / 75; Pulse 92; Resp 16; Pulse Ox 98% on R/A; kl1 21:03 Body Mass Index 35.51 (99.79 kg, 167.64 cm) kl1 MDM: 20:53 Patient medically screened. aaq 21:16 ED course: Patient is a 28-year-old male history of aaq hypertension presenting with abdominal pain nausea and diarrhea. Concern is for possible gastroenteritis however significant tenderness on exam. Will check basic labs, fluids as well as a CT of the abdomen pelvis.. 22:40 Data reviewed: vital signs, lab test result(s), radiologic aaq studies. Counseling: I had a detailed discussion with the patient and/or guardian regarding: lab results, radiology results, diagnosis, the need for outpatient follow up, to return to the emergency department if symptoms worsen or persist or if there are any questions or concerns that arise at home. ED course: Patient with adequate improvement in pain here, did have an episode of diarrhea here. Labs are reassuring with exception of slight white count likely hemoconcentrated. He did receive a liter of fluids and ketones in his urine. CAT scan showed fluid filled loops of bowel related to enteritis versus ileus. Given the no nbilious vomiting as well as multiple episodes of diarrhea here likely secondary to gastroenteritis. He has not had a history of surgeries in the abdomen, no transition point is seen and he is still passing stool here therefore less likely obstruction. Given that he is well-appearing with normal vitals will be discharged follow-up as an outpatient. He understands and agrees to this plan.. 08/06 21:06 Order name: Cbc With Auto Differential; Complete Time: 22:12aaq 08/06 22:12 Interpretation: WBC 14.6; RBC 6.13; HGB 17.9; HCT 50.1; MCV aaq 81.7; MCH 29.2; MCHC 35.7; RDW 11.8; PLT 210; MPV 10.4; ImmGran% (AUTO) 0; Neut% (AUTO) 86; Lymph% (AUTO) 4; [place]% (AUTO) 9; Eos% (AUTO) 0; Baso% (AUTO) 0; ImmGran# (AUTO) 0.06; Neut# (AUTO) 12.6; Lymph# (AUTO) 0.5; [place]# (AUTO) 1.4; Eos# (AUTO) 0.0; Baso# (AUTO) 0.04. 08/06 21:06 Order name: COMMET; Complete Time: 22:12 aaq 08/06 22:13 Interpretation: NA 137; K 4.0; CL 107; CO2 23.0; GAP 7.0; aaq BUN 21; CREAT 0.91; Glom Filtration > 90; GLU 119; CA 9.2; Corrected CA 8.7; T Bili 0.7; SGOT(AST) 20; SGPT(ALT) 49; ALK PHOS 58; TP 7.9; ALB 4.6. 08/06 21:06 Order name: C-Reactive Protein,Wide Range; Complete Time: aaq 22:12 08/06 22:13 Interpretation: CRP-wr < 2.90. aaq 08/06 21:06 Order name: Magnesium; Complete Time: 22:12 aaq 08/06 22:13 Interpretation: MG 1.80. aaq 08/06 21:06 Order name: Lipase; Complete Time: 22:12 aaq 08/06 22:13 Interpretation: LIP 48. aaq 08/06 21:49 Order name: UA.; Complete Time: 22:29 aaq 08/06 22:30 Interpretation: Ur Color Yanira; Ur Clarity Clear; Ur Spec aaq gravity 1.030; Ur PH 5.5; Ur Protein 1+ 30; Ur Glucose Negative; Ur Ketones 15; Ur Blood Negative; Ur Bilirubin Small; Ur Urobilinogen 1.0; Ur Leuk Est Negative; Ur Nitrite Negative. 08/06 21:06 Order name: Ct Abdomen & Pelvis with Con aaq 08/06 21:49 Order name: Collect Urine - Clean Catch; Complete Time: aaq 21:52 08/06 22:25 Order name: Urinalysis Auto w/Microscopy; Complete Time: E DMS 22:29 08/06 22:30 Interpretation: Ur RBC Auto 3-5; Ur WBC Auto 1-2; aaq UHyalCasts Auto 1-2 Hyaline Cast; Ur Bact Auto None Seen; UEpi cells Auto Few. Dispensed Medications: 21:21 Drug: Ofirmev 1000 mg [Ofirmev 1,000 mg/100 mL (10 mg/mL) kl1 intravenous solution] Route: IVPB; Site: right antecubital; 21:21 Drug: NS 0.9% 1000 ml Route: IV; Rate: 999 mL/hr; Site: [facility] right antecubital; 22:26 Drug: morphine 2 mg Route: IVP; Site: right antecubital; 1 22:56 Drug: Dicyclomine 20 mg [dicyclomine 10 mg capsule (2 kl1 caps)] Route: PO; Disposition Summary: 08/07/19 22:38 Discharge Ordered Location: Home/Self Care aaq Problem: new aaq Symptoms: have improved aaq Condition: Good aaq Diagnosis - Abdominal pain aaq - Gastroenteritis aaq Followup: aaq - With: Private Physician - When: Tomorrow - Reason: Discharge Instructions: - Discharge Summary Sheet aaq - Abdominal Pain, Adult, [id number] aaq Forms: - Medication Reconciliation aaq Prescriptions: - Bentyl 10 mg Oral Capsule - take 1 capsule by ORAL route every 6 hours As aaq needed; 25 capsule; Refills: 0, Product Selection Permitted - ondansetron 4 mg Oral - take 4 milligrams by SUBLINGUAL route 4 times per aaq day As needed; 12 tabl et; Refills: 0, Product Selection Permitted Signatures: Dispatcher [employer] EDMS Naresh Hagan RN RN [facility] Dong Capellan MD MD aaq Name Value Range Interpretation Code Description Data Mia rce(s) Supporting Document(s) ID Date Data Source [id number] 08/07/2019 08:52:00 PM EDT [facility] Name: MIK TREVINO [facility] Rec #: [id number] 59 : 1990 Age/Sex: 28M Date of Service: 08/07/19 NURSE CHART Nurse's Notes [facility] Name: Mik Trevino Age: 28 yrs Sex: Male : 1990 Arrival Date: 08/07/2019 Time: 20:52 Bed 7 Private MD: None, Primary Care Provider- Diagnosis: Abdominal pain;Gastroenteritis Presentation: 08/06 21:01 Transition of care: chhaya vazquez was not received from another [facility] setting of care. Presenting complaint: Patient states - Patient states since 1600 has had episodes of abdominal pain, nausea, vomiting, diarrhea. Have you travelled in the last 30 days? No. Have you had contact with an individual with a confirmed diagnosis of Ebola or COVID-19? No. Care prior to arrival: See EMS report. Medication(s) given: Toradol Zofran. 21:01 Method Of Arrival: [facility] kl1 21:01 Acuity: Urgent - 3 kl1 21:04 Care prior to arrival: IV initiated. kl1 Triage Assessment: 21:02 SEPSIS SCREEN: A Confirmed or Suspected Infection is kl1 Unknown. Suicide Screening: Have you had thoughts of harming yourself or others? No. The patient appears to have some mild discomfort, The patient is cooperative. Patient states the pain is currently a 4 / 10 The patient complains of pain in abdomen. GI: The patient reports diarrhea, nausea, vomiting. Historical: - Allergies: No known drug Allergies; - Home Meds: 1. lisinopril 10 mg Oral tab 1 tab once daily (Last dose: Unknown) - PMHx: Hypertensive disorder; - PSHx: None; - Med Reconciliation:: Green Alert: The patient's med list is complete to the best of the nurse's/provider's knowledge. Medications reviewed, completed by nurse using patient's med list. - Immunization history: unknown. - Advance directive: There is no existing advanced directive. Information offered. - Family History:: mother : unknown medical history. Father : unknown medical history. - Social History: Smoking status (Tobacco): Patient states he/she has never smoked tobacco. Preferred Language: Latvian. Screenin:04 AUDIT 1. How often do you have a drink containing alcohol? kl1 Never (0 points). Drug Abuse Screening Test: 1. Have you used drugs other than those required for medical reasons? No (0 points), screen is complete, no risk. Abuse screen: Denies threats or abuse. Denies injuries from another. Nutritional screening: No deficits noted. Patient has no identifiable fall risk (Gomez Scale: 0 points). Assessment: 21:05 See Triage Assessment. GI: Abdomen is flat, Bowel sounds kl1 present X 4 quads. On palpation, the abdomen is soft, Abd is tender to palpation in umbilical area. Vital Signs: 21:03 BP 113 / 69; Pulse 99; Resp 18; Temp 97.8; Pulse Ox 99% on kl1 R/A; Weight 99.79 kg; Height 5 ft. 6 in. (167.64 cm); 22:19 BP 127 / 75; Pulse 92; Resp 16; Pulse Ox 98% on R/A; kl1 21:03 Body Mass Index 35.51 (99.79 kg, 167.64 cm) 1 ED Course: 20:53 Naresh Hagan, RN is Primary Nurse. sf2 20:53 Patient arrived in ED. sf2 20:53 Dong Capellan MD is Attending Physician. aaq 21:01 None, Primary Care Provider- is Private Physician. kl1 21:02 Triage completed. kl1 21:03 Arm band placed on right wrist. kl1 21:22 Labs drawn by lab staff. Maintain field IV. kl1 21:52 Urine collected. Clean catch specimen. kl1 22:11 Ct Abdomen & Pelvis with Con Sent. kl1 22:56 Radiology: The patient went to get his/her CT at 22:57. kl1 22:56 No procedures ordered. Discontinued IV. kl1 Administered Medications: 21:21 Drug: Ofirmev 1000 mg [Ofirmev 1,000 mg/100 mL (10 mg/mL) [facility] intravenous solution] Route: IVPB; Site: right antecubital; 21:21 Drug: NS 0.9% 1000 ml Route: IV; Rate: 999 mL/hr; Site: [facility] right antecubital; 22:26 Drug: morphine 2 mg Route: IVP; Site: right antecubital; kl1 22:56 Drug: Dicyclomine 20 mg [dicyclomine 10 mg capsule (2 [facility] caps)] Route: PO; Outcome: 22:38 D ischarge ordered by . aaq 22:57 Patient verbalized understanding of disposition [facility] instructions. Patient has no functional deficits. 22:57 Patient discharged to home ambulatory. 22:57 Condition: good 22:57 Discharge instructions given to patient, Prescriptions given X 2. 22:57 Vitals are Complete in accordance with Emergency Department Policy. 22:57 Patient left the ED. 1 08/07 15:50 24 hour call back attempted, invalid phone number cmm Signatures: Silvina Vigil RN RN cmm Naresh Hagan, KWMAE RN [facility] Mindy Shaffer 2 Dong Capellan MD MD aaq Corrections: (The following items were deleted from the chart) 08/06 22:57 22:56 Radiology: None performed [place] [id number] Name Value Range Interpretation Code Description Data [facility] rce(s) Supporting Document(s) ID Date Data Source [id number] 08/07/2019 10:28:00 PM EDT [facility] Name Value Range Interpretation Code Description Data [facility] rce(s) Supporting Document(s) Color,Urine Yellow [facility] pital Clarity,Urine Clear Normal (applies to non-numeric re sults) [facility] Specific [place],Urine 1.001-1.030 Normal (applies to non- numeric results) [facility] PH,Urine 5.0-8.0 Normal (applies to non-numeric resul ts) [facility] Protein,Urine Negative [facility] ospital Glucose,Urine (UA) Negative Normal (applies to non-numer ic results) [facility] Ketones,Urine 15 mg/dL Negative [facility] ospital Blood,Urine Negative Normal (applies to non-numeric resu lts) [facility] Bilirubin,Urine Negative [facility] Positive Bilirubin is no longer doublech ecked. Bilirubin may be elevated due to urine color interference. Urobilinogen,Urine Norm 0.2-1 Normal (applies to non-numer ic results) [facility] Leukocyte Esterase,Urine Negative Normal (applies to non -numeric results) [facility] Nitrite,Urine Negative Normal (applies to non-numeric re sults) [facility] ID Date Data Source [id number] 08/07/2019 10:28:00 PM EDT [facility] Name Value Range Interpretation Code Description Data [facility] Supporting Document(s) RBC,Auto Urine 0-2 [facility] WBC Urine Auto 0-2 Normal (applies to non-numeric r esults) [facility] Casts,Hyaline,Urine Auto 0-2 Normal (applies to non -numeric results) [facility] Bacteria Urine Auto None Seen Normal (applies to non-nume ana results) [facility] Epithelial Cell Ur Auto None-Few Normal (applies to non- numeric results) [facility] ID Date Data Source [id number] 08/07/2019 10:05:00 PM EDT [facility] Name Value Range Interpretation Code Description Data Mia rce(s) Supporting Document(s) Sodium 137 mmol/L 137-145 Normal (applies to non-numeric resul ts) [facility] Potassium 3.5-5.1 Normal (applies to non-numeric resul ts) [facility] Chloride 107 mmol/L 98-112 Normal (applies to non-numeric resul ts) [facility] Carbon Dioxide CO2 22.0-33.0 Normal (applies to non-numer ic results) [facility] Anion Gap 4.0-11.0 Normal (applies to non-numeric resul ts) [facility] BUN 21 mg/dL 9-20 Above high normal [facility] Creatinine 0.80-1.50 Normal (applies to non-numeric resul ts) [facility] GFR >60 Normal (applies to non-numeric results) [facility] Result based on MDRD formula. Glucose Level 119 mg/dL 74-99 Above high normal [facility] The reference range is only applicable w hen fasting. Calcium-Uncorrected 8.4-10.2 Normal (applies to non-nume ana results) [facility] Corrected Calcium 8.4-10.2 Normal (applies to non-numeri c results) [facility] Bilirubin,Total 0.2-1.3 Normal (applies to non-numeric results) [facility] SGOT(AST) 20 U/L 17-59 Normal (applies to non-numeric resul ts) [facility] SGPT(ALT) 49 U/L 21-72 Normal (applies to non-numeric resul ts) [facility] Alkaline Phosphatase 58 U/L 38-126 Normal (applies to non-num mauricio results) [facility] can increase Alkaline Phosp le vels up to 2 times the normal adult value. Normal values for children and adolescents are 2 to 3 times the normal adult value. Total Protein 6.3-8.2 Normal (applies to non-numeric re sults) [facility] Albumin 3.5-5.0 Normal (applies to non-numeric resul ts) [facility] ID Date Data Source [id number] 08/07/2019 10:05:00 PM EDT [facility] Name Value Range Interpretation Code Description Data Mia rce(s) Supporting Document(s) Magnesium 1.80-2.40 Normal (applies to non-numeric resul ts) [facility] ID Date Data Source [id number] 08/07/2019 10:05:00 PM EDT [facility] Name Value Range Interpretation Code Description Data Mia rce(s) Supporting Document(s) C-Reactive Protein,Wide Range <3.00 Normal (applies t o non-numeric results) [facility] ID Date Data Source [id number] 08/07/2019 10:05:00 PM EDT [facility] Name Value Range Interpretation Code Description Data Mia rce(s) Supporting Document(s) Lipase 48 U/L 73-393 Below low normal [facility] ID Date Data Source [id number] 08/07/2019 09:57:00 PM EDT [facility] Name Value Range Interpretation Code Description Data Mia rce(s) Supporting Document(s) White Blood Count 4.8-10.8 Above high normal [facility] Red Blood Count 4.35-6.08 Above high normal [facility] Hemoglobin 13.0-17.5 Above high normal [facility] Hematocrit 37.7-51.0 Normal (applies to non-numeric resul ts) [facility] Mean Corpuscular Volume 80-94 Normal (applies to non- numeric results) [facility] Mean Corpuscular Hemoglobin 27.0-33.0 Normal (appli es to non-numeric results) [facility] Mean Corpuscular HGB Conc 32.0-36.0 Normal (applies to no n-numeric results) [facility] Red Cell Distribution Width 11.5-14.5 Normal (appli es to non-numeric results) [facility] Platelet Count 210 X10 3/uL 130-450 Normal (applies to non-numeric results) [facility] Mean Platelet Volume 9.6-13.1 Normal (applies to non-num mauricio results) [facility] Imm [place]ans% (AUTO) 0 % 0-2 Normal (applies to non-numeri c results) [facility] Neutrophils % (AUTO) 86 % 40-75 Above high normal [facility] Lymphocytes % (AUTO) 4 % 21-46 Below low normal [facility] Monocytes % (AUTO) 9 % 5-12 Normal (applies to non-numer ic results) [facility] Eosinophils % (AUTO) 0 % 1-5 Below low normal [facility] Basophils % (AUTO) 0 % 0-1 Normal (applies to non-numer ic results) [facility] Imm Grans# (AUTO) 0.00-0.50 Normal (applies to non-numeri c results) [facility] Neutrophils # (AUTO) 1.5-8.1 Above high normal [facility] Lymphocytes # (AUTO) 1.0-3.1 Below low normal [facility] [place] [facility] Mon[facility] # (AUTO) 0.2-1.3 Above high normal [facility] Eosinophils# (AUTO) 0.0-0.5 Normal (applies to non-nume ana results) [facility] Basophils # (AUTO) 0.00-0.10 Normal (applies to non-numer ic results) [facility] ID Date Data Source [id number] 08/07/2019 10:26:00 PM EDT [facility] Name: MIK TREVINO Viri : 1990 A ge/Sex: 28M Ordering Provider: Dong Capellan MD Med Rec #: [id number] Reg Status: REG ER Room #: Date of Service: 08/07/19 Report Number: [id number] cc:Dong Capellan MD; Patti Segovia IV, ERIN Send Report To: CT ABDOMEN AND PELVIS WITH CONTRAST COMPARISON: None HISTORY: Periumbilical abd pain TECHNIQUE: CT images through the abdomen and pelvis obtained with intravenous contrast. With; 85ccs isovue 300 FINDINGS: Lung bases are clear. Heart size is normal. Abdomen: Liver, spleen, adrenals, pancreas, gallbladder unremarkable. No hydronephrosis or urinary stone. Pelvis: The appendix is normal caliber. There are fluid-filled loops of bowel. No transition point. No aortic dissection or aneurysm. No free fluid or free air. No acute bony abnormality.Impressions: Fluid-filled loops of bowel may be related to enteritis or ileus. No definite transition point is seen to suggest obstruction. Fluoroscopy time in seconds: Number of Exposures: Time Portable Image Performed: Contrast Agent in ml: Isovue 300 85CCS Method of Administration: ExistingIV REPORT SIGNATURE ON FILE Reported By: Andrez Somers MD 08/07/192225 Dictation Date/Time: 08/07/192225 Transcribed Date/Time: 08/07/192225 [place] [facility]: Name Value Range Interpretation Code Description Data Mia rce(s) Supporting Document(s) Procedure
[2020-06-14 00:40] LABS: BASO % 0.5 % (0.0-1.0); EOS # 0.1 10^3/uL (0.0-0.5); EOS % 2.1 % (0.0-3.0); HEMATOCRIT 47.5 % (42.0-52.0); HEMOGLOBIN 16.6 g/dl (13.5-17.5); LYMPH # 2.1 10^3/uL (1.5-5.0); LYMPH % 32.4 % (24.0-44.0); MEAN CORPUSCULAR HEMOGLOBIN 29.4 pg (27.0-33.0); MEAN CORPUSCULAR HGB CONC 34.9 g/dl (32.0-36.5); MEAN CORPUSCULAR VOLUME 84.2 fl (80.0-96.0); MONO # 0.8 10^3/uL (0.0-0.8); MONO % 12.2 % (0.0-5.0); NEUTROPHILS # 3.5 10^3/uL (1.5-8.5); NEUTROPHILS % 52.5 % (36.0-66.0); PLATELET COUNT, AUTOMATED 225 10^3/uL (150-450); RED BLOOD COUNT 5.64 10^6/uL (4.30-6.10); WHITE BLOOD COUNT 6.6 10^3/uL (4.0-10.0)
--- NOTE | 2020-06-14 01:14 | REPVR ---
PROCEDURE INFORMATION: Exam: XR Chest, 1 View Exam date and time: 06/14/2020 12:30 AM Age: 29 years old Clinical indication: Chest pain TECHNIQUE: Imaging protocol: XR of the chest Views: 1 view. COMPARISON: ID PORTABLE CHEST X-RAY 07/17/2018 12:05 PM FINDINGS: Lungs: There are no interval infiltrates. Pleural space: Unremarkable. No pleural effusion. No pneumothorax. Heart/Mediastinum: The heart and mediastinum are unchanged. Bones/joints: Unremarkable. Soft tissues: There are moderately generous overlying soft tissues. IMPRESSION: Negative lordotic chest without change from 07/17/2018. Electronically signed by: Rudy King On 06/14/2020 01:14:30 AM
[2020-06-14 01:22] LABS: BLOOD UREA NITROGEN 23 MG/DL (7-18); CALCIUM LEVEL 9.8 MG/DL (8.5-10.1); CARBON DIOXIDE LEVEL 25 MEQ/L (21-32); CHLORIDE LEVEL 109 MEQ/L (98-107); CK-MB VALUE MASS 2.3 NG/ML (<3.6); CPK CREATINE PHOSPHOKINASE 119 U/L (39-308); CREATININE FOR GFR 0.96 MG/DL (0.70-1.30); FREE T4 1.05 NG/DL (0.76-1.46); GLOMERULAR FILTRATION RATE > 60.0 (>60); GLUCOSE, FASTING 92 MG/DL (70-100); MAGNESIUM LEVEL 2.2 MG/DL (1.8-2.4); MB/CK RELATIVE INDEX 1.93 (< OR =4); POTASSIUM SERUM 3.4 MEQ/L (3.5-5.1); SODIUM LEVEL 140 MEQ/L (136-145); TROPONIN I < 0.02 NG/ML (< 0.10)
[2020-06-14] MEDS ORDERED: POTASSIUM CHLORIDE 10 MEQ SR TABLET PO ONE (01:30)
--- OUTSIDE RECORDS SUMMARY | 2020-06-14 02:05 | CCD ---
Author Author [facility] Organization [facility] Address Unknown Phone Unavailable Care Team Providers Care Information Consultant Name Role Phone ETHAN CARTAGENA MD Unavailable [...] MD Unavailable Unavailable DAVID IV, L PATTI PROJECT DEVELOPMENT COORDINATOR Unavailable Unavailable DAVID IV, L PATTI PROJECT DEVELOPMENT COORDINATOR Unavailable Unavailable DAVID IV, L PATTI PROJECT DEVELOPMENT COORDINATOR Unavailable Unavailable DAVID IV, L PATTI PROJECT DEVELOPMENT COORDINATOR Unavailable Unavailable DAVID IV, L PATTI PROJECT DEVELOPMENT COORDINATOR Unavailable Unavailable DAVDI IV, L PATTI PROJECT DEVELOPMENT COORDINATOR Unavailable Unavailable DAVID IV, L PATTI PROJECT DEVELOPMENT COORDINATOR Unavailable Unavailable DAVID IV, L PATTI PROJECT DEVELOPMENT COORDINATOR Unavailable Unavailable DAVID IV, L PATTI PROJECT DEVELOPMENT COORDINATOR Unavailable Unavailable DAVID IV, L PATTI PROJECT DEVELOPMENT COORDINATOR Unavailable Unavailable DAVID IV, L PATTI PROJECT DEVELOPMENT COORDINATOR Unavailable Unavailable DAVID IV, L PATTI PROJECT DEVELOPMENT COORDINATOR Unavailable Unavailable DAVID IV, L PATTI PROJECT DEVELOPMENT COORDINATOR Unavailable Unavailable DAVID IV, L PATTI PROJECT DEVELOPMENT COORDINATOR Unavailable Unavailable DAVID IV, L PATTI PROJECT DEVELOPMENT COORDINATOR Unavailable Unavailable DAVID IV, L PATTI PROJECT DEVELOPMENT COORDINATOR Unavailable Unavailable DAVID IV, L PATTI PROJECT DEVELOPMENT COORDINATOR Unavailable Unavailable DAVID IV, L PATTI PROJECT DEVELOPMENT COORDINATOR Unavailable Unavailable DAVID IV, L PATTI PROJECT DEVELOPMENT COORDINATOR Unavailable Unavailable DAVID IV, L PATTI PROJECT DEVELOPMENT COORDINATOR Unavailable Unavailable DAVID IV, L PATTI PROJECT DEVELOPMENT COORDINATOR Unavailable Unavailable DAVID IV, L PATTI PROJECT DEVELOPMENT COORDINATOR Unavailable Unavailable DAVID IV, L PATTI PROJECT DEVELOPMENT COORDINATOR Unavailable Unavailable DAVID IV, L PATTI PROJECT DEVELOPMENT COORDINATOR Unavailable Unavailable DAVID IV, L PATTI PROJECT DEVELOPMENT COORDINATOR Unavailable Unavailable DAVID IV, L PATTI PROJECT DEVELOPMENT COORDINATOR Unavailable Unavailable DAVID IV, L PATTI PROJECT DEVELOPMENT COORDINATOR Unavailable Unavailable DAVID IV, L PATTI PROJECT DEVELOPMENT COORDINATOR Unavailable Unavailable DAVID IV, L PATTI PROJECT DEVELOPMENT COORDINATOR Unavailable Unavailable DAVID IV, L PATTI PROJECT DEVELOPMENT COORDINATOR Unavailable Unavailable DAVID IV, L PATTI PROJECT DEVELOPMENT COORDINATOR Unavailable Unavailable DAVID IV, L PATTI PROJECT DEVELOPMENT COORDINATOR Unavailable Unavailable Edward Capellan MD Unavailable Unavailable [...] is protected by Article 27-F of the [facility] Public Health law. If you continue you may have access to information: Regarding HIV / AIDS; Provided by facilities licensed or operated by the [facility] Office of Mental Health; or Provided by the [facility] Office for People With Developmental Disabilities. If such information is present, then the following [facility] mandated warning applies: This information has been [...] law may result in a fine or mcfp sentence or both. A general authorization for [...] Attender: ETHAN CARTAGENA MD Main office - [facility] n 06/04/2020 03:15:00 PM EST [facility] ([facility]) Outpatient Attender: ETHAN CARTAGENA MD Main office - [facility] n 04/16/2020 06:00:00 AM EST [facility] ([facility]) Outpatient Attender: ETHAN CARTAGENA MD Main office - [facility] n 12/28/2019 08:00:00 AM EDT [facility] ([facility]) Outpatient Attender: ETHAN CARTAGENA MD Main office - [facility] n 10/24/2019 02:45:00 PM EDT [facility] ([facility]) Outpatient CPSCAORT-LABEJN 10/19/2019 08:04:00 PM EDT [facility] Outpatient Attender: Jayro Conroy MD ED-LAB 03:53:00 PM EDT - 10/19/2019 03:54:[address] [facility] HEADACHES Patient discharged. Emergency Attender: Dong Capellan MD CPSCAORT-ED 08/07/19 08:52:00 PM EDT - 08/07/2019 10:57:00 PM EDT NAUSEA, DIARRHEA, ABDOMINAL PAIN [facility] NAUSEA, DIARRHEA, ABDOMINAL PAIN Patient discharged. Outpatient Attender: PATTI SEGOVIA IV ED-HCCEDWPCP 2019 07:37:00 AM EST - 07/04/2019 07:38:[address] [facility] Patient discharged. Medications Medication Brand Name [...] 10/26/2019 12:00:0 0 AM EDT active [facility] ([facility]) zonisamide 50 MG Oral Capsule Zonisamide 10/26/2019 12:00:00 AM EDT ORAL active [facility] ([facility]) zonisamide 25 MG Oral [...] 08/25/2019 12:00:0 0 AM EDT completed [facility] ([facility]) 10 mg 08/08/2019 12:00:00 AM [...] type / Coverage type Policy ID Covered democrat ID Covered democrat's relationship to barreto Policy [place] Plan Information [employer] [place] P[place] 302/307 [id number] SP [id number] [place] [employer] [place] [id number] S [id number] [employer] [place] [id number] daytime caregiver employed [id number] SELF PAY daytime caregiver employed [employer] [place] [id number] S [id number] [employer] [id number] Self [id number] OTHER ECW 1 daytime caregiver employed [employer] [id number] Self [id number] [employer] [id number] Self [id number] [employer] [place] PPO 302/307 [id number] SP [id number] Problems, Conditions, and Diagnoses Code Display Name Description Problem Type Effective Dates Data Source(s) [id number] Headache Headache Problem 08/25/2019 12:00:00 AM ED T [facility]AR[facility] ([facility]) R51 Headache HEADACHE Diagnosis 10/19/2019 03:53:[address] [facility] I10 Essential (primary) hypertension ESSENTIAL (PRIMARY) H YPERTENSION Diagnosis 07/04/2019 07:37:00 AM [facility] G44.201 Tension-type headache, unspecified, intr actable TENSION-TYPE HEADACHE, UNSPECIFIED, INTRACTABLE Diagnosis 07/04/2019 07:37:00 AM [facility] Surgeries/Procedures Procedure Description Date Indications Data Source(s) Magnetic Resonance Angiogtaphy Head W/O Contrast Material(S) 11/13/2019 12:00:00 AM EDT [facility] ([facility] Magnetic Resonance Angiogtaphy Head W/O Contrast Material(S) 11/13/2019 12:00:00 AM EDT [facility] ([facility] Magnetic Resonance Angiography Neck W/O Contrast Materials 11/13/2019 12:00:00 AM [facility] ([facility] ) Magnetic Resonance Angiography Neck W/O Contrast Materials 11/13/2019 12:00:00 AM T [facility] ([facility] ) THYROID STIMULATING HORMONE TSH ASSAY THYROID STIM HORMONE 0 10/19/2019 12:00:00 AM [facility] ANTINUCLEAR ANTIBODIES JUANITO ANTINUCLEAR ANTIBODIES 10/19/2019 12:00: 00 AM [facility] 25 HYDROXY INCLUDES FRACTIONS IF PERFORMED VITAMIN D 25 HYDR OXY 10/19/2019 12:00:00 AM [facility] RHEUMATOID FACTOR QUANTITATIVE RHEUMATOID FACTOR QUANT 10/18 12:00:00 AM [facility] COLLECTION VENOUS BLOOD VENIPUNCTURE ROUTINE VENIPUNCTURE 12:00:00 AM [facility] SEDIMENTATION RATE RBC NON-AUTOMATED RBC SED RATE NONAUTOMAT ED 10/19/2019 12:00:00 AM [facility] BLOOD COUNT COMPLETE AUTO&AUTO DIFRNTL WBC COUNT COMPLETE CB C W/AUTO DIFF WBC 10/19/2019 12:00:00 AM [facility] COMPREHENSIVE METABOLIC PANEL COMPREHEN METABOLIC PANEL 09/22 12:00:00 AM [facility] TSTG ANS FUNCJ CARDIOVAGAL INNERVAJ PARASYMP 0 12:00:00 AM EDT [facility] ([facility] TSTG ANS FUNCJ CARDIOVAGAL INNERVAJ PARASYMP 0 12:00:00 AM EDT [facility] ([facility] ) TESTING AUTONOMIC NERVOUS SYSTEM FUNCTION 10/18/2019 1 2:00:00 AM [facility] ([facility] ) TESTING AUTONOMIC NERVOUS SYSTEM FUNCTION 10/18/2019 1 2[facility] MRI BRAIN BRAIN STEM W/O CONTRAST MATERIAL 08/28/2019 12:00:00 AM EDT [facility] ([facility] ) MRI BRAIN BRAIN STEM W/O CONTRAST MATERIAL 08/28/2019 12:00[facility] CT ABDOEN & PELVIS W/CONTRAST MATERIAL 08/07/2019 12:0 0:00 AM [facility] Low osmolar contrast material, 300-399 mg/ml iodine concentr ation, per ml 08/07/2019 12:00:00 AM [facility] URNLS DIP STICK/TABLET REAGENT AUTO MICROSCOPY 020 12:00:00 AM [facility] BLOOD COUNT COMPLETE AUTO&AUTO DIFRNTL WBC COUNT 08/06 12:00:00 AM [facility] MAGNESIUM 08/07/2019 12:00:00 AM [facility] C-REACTIVE PROTEIN 08/07/2019 12:00:00 AM [facility] LIPASE 08/07/2019 12:00:00 AM [facility] COMPREHENSIVE METABOLIC PANEL 08/07/2019 12:00:00 AM E [facility] Injection, acetaminophen, 10 mg 08/07/2019 12:00:00 AM [facility] Non-covered item or service 08/07/2019 12:00:00 AM [facility] Injection, morphine sulfate, up to 10 mg 08/07/2019 12 :00:00 AM [facility] THERAPEUTIC INJECTION IV PUSH EACH NEW DRUG 08/07/2019 12:00:00 AM [facility] THER PROPH/DX NJX IV PUSH SINGLE/1ST SBST/DRUG 020 12:00:00 AM [facility] EMERGENCY DEPARTMENT VISIT HIGH/URGENT SEVERITY 2019 12:00:00 AM [facility] OFFICE OUTPATIENT VISIT 10 MINUTES OFFICE/OUTPATIENT VISIT E ST 07/04/2019 12:00:[address] [facility] Results ID Date Data Source [id number] 10/23/2019 03:58:00 PM [facility] Name Value Range Interpretation Code Description Data Mia rce(s) Supporting Document(s) JUANITO Interpretation Result Negative Normal (applies to no n-numeric results) [facility] Results were obtained with the [employer] NOV A Lite HEp-2 JUANIOT Kit by indirect immunofluorescence. Test performed or referred by The [address] [address] ID Date Data Source [id number] 10/23/2019 03:14:00 PM EDT [facility] Name Value Range Interpretation Code Description Data Mia rce(s) Supporting Document(s) JUANITO Interpretation Result Negative Normal (applies to no n-numeric results) [facility] Results were obtained with the [employer] NOV A Lite HEp-2 JUANITO Kit by indirect immunofluorescence. Test performed or referred by The [address] [address] ID Date Data Source [id number] 10/20/2019 10:18:00 AM EDT [facility] Value Range Interpretation Code Description Data Mia rce(s) Supporting Document(s) Vitamin D, Total 30.0-100.0 Below low normal [facility] ID Date Data Source [id number] 10/20/2019 07:35:[address] [facility] Name Value Range Interpretation Code Description Data Mia rce(s) Supporting Document(s) RF Rheumatoid Factor result 0.0-15.0 Normal (appli es to non-numeric results) [facility] Test Performed By: [facility] [address] [place] [address] Director: Shireen Shannon MD ID Date Data Source [id number] 10/19/2019 10:21:00 PM EDT [facility] Value Range Interpretation Code Description Data Mia rce(s) Supporting Document(s) Rheumatoid Factor 0.0-15.0 Normal (applies to non-numeri c results) [facility] Test Performed By: [facility] [address] [place] [address] Director: Shireen Shannon MD ID Date Data Source [id number] 10/19/2019 04:54:00 PM EDT [facility] Value Range Interpretation Code Description Data Mia rce(s) Supporting Document(s) Sodium 140 mmol/L 136-145 Normal (applies to non-numeric resul ts) [facility] Potassium 3.5-5.1 Normal (applies to non-numeric resul ts) [facility] Chloride 104 mmol/L 98-107 Normal (applies to non-numeric resul ts) [facility] Carbon Dioxide CO2 21-32 Normal (applies to non-numer ic results) [facility] Anion Gap 5.0-16.0 Normal (applies to non-numeric resul ts) [facility] BUN 24 mg/dL 7-18 Above high normal [facility] ospital Creatinine,Serum 0.8-1.5 Normal (applies to non-numeric results) [facility] GFR >60 Normal (applies to non-numeric results) [facility] Glucose Level 94 mg/dL 60-99 Normal (applies to non-numeric re sults) [facility] Reference range is only applicable when patient is fasting Note the following drug interference: Sulfasalazine Sulfapyridine Can see falsely depressed Can see falsely elevated result with up to 17% results with up to 11% decrease in measurement increase in measurement Recommend patients be collected for this test prior to administration of either drug. Calcium 8.5-10.1 Normal (applies to non-numeric resul ts) [facility] Bilirubin,Total 0.1-1.9 Normal (applies to non-numeric results) [facility] SGOT(AST) 19 U/L 15-37 Normal (applies to non-numeric resul ts) [facility] Note the following drug interference: Sulfasalazine Sulfapyridine Can see falsely depressed Can see falsely elevated result with up to 10% results with up to 10% decrease in measurement increase in measurement Recommend patients be collected for this test prior to administration of either drug. SGPT(ALT) 47 U/L 12-78 Normal (applies to non-numeric resul ts) [facility] Note the following drug interference: Sulfasalazine Sulfapyridine Can see falsely depressed Can see falsely elevated result with up to 29% results with up to 10% decrease in measurement increase in measurement Recommend patients be collected for this test prior to administration of either drug. Alkaline Phosphatase 45 U/L 38-126 Normal (applies to non-num mauricio results) [facility] can increase Alkaline Phosp le vels up to 2 times the normal adult value. Normal values for children and adolescents are 2 to 3 times the normal adult value. Total Protein 6.0-8.2 Normal (applies to non-numeric re sults) [facility] Albumin Level 3.4-5.0 Normal (applies to non-numeric re sults) [facility] ID Date Data Source [id number] 10/19/2019 04:54:[address] [facility] Name Value Range Interpretation Code Description Data Mia rce(s) Supporting Document(s) Thyroid Stimulate Hormone TSH 0.358-3.74 No rmal (applies to non-numeric results) [facility] ID Date Data Source [id number] 10/19/2019 04:48:[address] [facility] Name Value Range Interpretation Code Description Data Mia rce(s) Supporting Document(s) White Blood Count 3.5-10.5 Normal (applies to non-numeri c results) [facility] Red Blood Count 4.30-5.70 Normal (applies to non-numeric results) [facility] Hemoglobin 13.5-17.5 Normal (applies to non-numeric resul ts) [facility] Hematocrit 38.8-50.0 Normal (applies to non-numeric resul ts) [facility] Mean Corpuscular Volume 81.2-95.1 Normal (applies to non- numeric results) [facility] Mean Corpuscular Hgb 25.6-32.2 Normal (applies to non-num mauricio results) [facility] Mean Corpuscular Hgb Conc 32.0-36.0 Normal (applies to no n-numeric results) [facility] Red Cell Distribution Width 11.8-15.6 Normal (appli es to non-numeric results) [facility] Platelet Count 212 x10 3/uL 150-450 Normal (applies to non-numeric results) [facility] Mean Platelet Volume 9.4-12.4 Normal (applies to non-num mauricio results) [facility] Neutrophils% (Auto) 31.0-71.0 Normal (applies to non-nume ana results) [facility] Lymphocytes% (Auto) 20.0-55.0 Normal (applies to non-nume ana results) [facility] Monocytes% (Auto) 4.0-12.0 Normal (applies to non-numeri c results) [facility] Eosinophils% (Auto) 1.0-8.0 Normal (applies to non-nume ana results) [facility] Basophils% (Auto) 0.0-2.0 Normal (applies to non-numeri c results) [facility] Immature Granulocytes% (Auto) 0.0-2.0 Normal (chaz lies to non-numeric results) [facility] Neutrophils# (Auto) 1.50-6.20 Normal (applies to non-nume ana results) [facility] Lymphocytes# (Auto) 1.20-4.00 Normal (applies to non-nume ana results) [facility] Monocytes# (Auto) 0.00-0.90 Normal (applies to non-numeri c results) [facility] Eosinophils# (Auto) 0.00-0.50 Normal (applies to non-nume ana results) [facility] Basophils# (Auto) 0.00-0.20 Normal (applies to non-numeri c results) [facility] Immature Granulocytes# (Auto) 0.00-7.00 No rmal (applies to non-numeric results) [facility] ID Date Data Source [id number] 10/19/2019 04:48:[address] [facility] Name Value Range Interpretation Code Description Data Mia rce(s) Supporting Document(s) Erythrocyte Sedimentation rate 1 mm/hr 0-15 N ormal (applies to non-numeric results) [facility] ID Date Data Source [id number] 08/07/2019 08:52:00 PM EDT [facility] Name: MIK TREVINO [facility] Rec #: [id number] 57 : 1990 Age/Sex: 28M Date of Service: 08/07/19 DISPOSITION SUMMARY Discharge Summary [facility] Name:Mik Trevino Emergency Department Age:28 yrs [...] Instruction: Discharge Summary Sheet, Abdominal Pain, Adult, Ktpv-[id number], Medication Reconciliation Name Value Range Interpretation Code Description Data Mia rce(s) Supporting Document(s) ID Date Data Source [id number] 08/07/2019 08:52:00 PM EDT [facility] Name: MIK TREVINO [facility] Rec #: [id number] [birth year] : 1990 Age/Sex: 28M Date of Service: 08/07/19 PHYSICIAN CHART Physician Documentation [facility] Name: Mik Trevino Age: 28 yrs Sex: Male : 1990 Arrival Date: 08/07/2019 Time: 20:52 Bed 7 Private MD: None, Primary Care Provider- ED Physician Dong Capellan HPI: 08/06 21:15 This 28 yrs old Male presents to ER via [facility] with complaints of Nausea, Diarrhea, [...] he/she has never smoked tobacco. Preferred Language: [place]. ROS: 21:16 Constitutional: A 10 point review [...] 0; Neut% (AUTO) 86; Lymph% (AUTO) 4; Pender% (AUTO) 9; Eos% (AUTO) 0; Baso% (AUTO) 0; ImmGran# (AUTO) 0.06; Neut# (AUTO) 12.6; Lymph# (AUTO) 0.5; Pender# (AUTO) 1.4; Eos# (AUTO) 0.0; Baso# (AUTO) [...] ml Route: IV; Rate: 999 mL/hr; Site: [facility] right antecubital; 22:26 Drug: morphine 2 mg [...] Summary Sheet aaq - Abdominal Pain, Adult, [id number]-[id number] aaq Forms: - Medication Reconciliation aaq Prescriptions: [...] Dispatcher [employer] EDMS Naresh Hagan RN RN [facility] Dong Capellan MD MD aaq Name Value Range Interpretation Code Description Data Mia rce(s) Supporting Document(s) ID Date Data Source [id number] 08/07/2019 08:52:00 PM EDT [facility] Name: MIK TREVINO [facility] Rec #: [id number] [birth year] : 1990 Age/Sex: 28M Date of Service: 08/07/19 NURSE CHART Nurse's Notes [facility] Name: Mik Trevino Age: 28 yrs Sex: Male : 1990 Arrival Date: 08/07/2019 Time: 20:52 Bed 7 Private MD: None, Primary Care Provider- Diagnosis: Abdominal pain;Gastroenteritis Presentation: 08/06 21:01 Transition of care: chhaya vazquez was not received from another [facility] setting of care. Presenting complaint: Patient states [...] he/she has never smoked tobacco. Preferred Language: [place]. Screenin:04 AUDIT 1. How often do you [...] mg [Ofirmev 1,000 mg/100 mL (10 mg/mL) [facility] intravenous solution] Route: IVPB; Site: right antecubital; 21:21 Drug: NS 0.9% 1000 ml Route: IV; Rate: 999 mL/hr; Site: [facility] right antecubital; 22:26 Drug: morphine 2 mg Route: IVP; Site: right antecubital; kl1 22:56 Drug: Dicyclomine 20 mg [dicyclomine 10 mg capsule (2 [facility] caps)] Route: PO; Outcome: 22:38 D ischarge ordered by . aaq 22:57 Patient verbalized understanding of disposition [facility] instructions. Patient has no functional deficits. 22:57 Patient discharged to home ambulatory. 22:57 Condition: good 22:57 Discharge instructions given to patient, Prescriptions given X 2. 22:57 Vitals are Complete in accordance with Emergency Department Policy. 22:57 Patient left the ED. 1 08/07 15:50 24 hour call back attempted, invalid phone number cmm Signatures: Silvina iVgil RN RN cmm Naresh Hagan, KWAME RN [facility] Mindy Shaffer 2 Dong Capellan MD MD aaq Corrections: (The following items were deleted from the chart) 08/06 22:57 22:56 Radiology: None performed [place] [id number] Name Value Range Interpretation Code Description Data [facility] rce(s) Supporting Document(s) ID Date Data Source [id number] 08/07/2019 10:28:00 PM EDT [facility] Name Value Range Interpretation Code Description Data [facility] rce(s) Supporting Document(s) Color,Urine Yellow [facility] pital Clarity,Urine Clear Normal (applies to non-numeric re sults) [facility] Specific Horace,Urine 1.001-1.030 Normal (applies to non- numeric results) [facility] PH,Urine 5.0-8.0 Normal (applies to non-numeric resul ts) [facility] Protein,Urine Negative [facility] ospital Glucose,Urine (UA) Negative Normal (applies to non-numer ic results) [facility] Ketones,Urine 15 mg/dL Negative [facility] ospital Blood,Urine Negative Normal (applies to non-numeric resu lts) [facility] Bilirubin,Urine Negative [facility] Positive Bilirubin is no longer doublech ecked. Bilirubin may be elevated due to urine color interference. Urobilinogen,Urine Norm 0.2-1 Normal (applies to non-numer ic results) [facility] Leukocyte Esterase,Urine Negative Normal (applies to non -numeric results) [facility] Nitrite,Urine Negative Normal (applies to non-numeric re sults) [facility] ID Date Data Source [id number] 08/07/2019 10:28:00 PM EDT [facility] Name Value Range Interpretation Code Description [facility] Document(s) RBC,Auto Urine 0-2 [facility] WBC Urine Auto 0-2 Normal (applies to non-numeric r esults) [facility] Casts,Hyaline,Urine Auto 0-2 Normal (applies to non -numeric results) [facility] Bacteria Urine Auto None Seen Normal (applies to non-nume ana results) [facility] Epithelial Cell Ur Auto None-Few Normal (applies to non- numeric results) [facility] ID Date Data Source [id number] 08/07/2019 10:05:00 PM EDT [facility] Name Value Range Interpretation Code Description Data Mia rce(s) Supporting Document(s) Sodium 137 mmol/L 137-145 Normal (applies to non-numeric resul ts) [facility] Potassium 3.5-5.1 Normal (applies to non-numeric resul ts) [facility] Chloride 107 mmol/L 98-112 Normal (applies to non-numeric resul ts) [facility] Carbon Dioxide CO2 22.0-33.0 Normal (applies to non-numer ic results) [facility] Anion Gap 4.0-11.0 Normal (applies to non-numeric resul ts) [facility] BUN 21 mg/dL 9-20 Above high normal [facility] Creatinine 0.80-1.50 Normal (applies to non-numeric resul ts) [facility] GFR >60 Normal (applies to non-numeric results) [facility] Result based on MDRD formula. Glucose Level 119 mg/dL 74-99 Above high normal [facility] The reference range is only applicable w hen fasting. Calcium-Uncorrected 8.4-10.2 Normal (applies to non-nume ana results) [facility] Corrected Calcium 8.4-10.2 Normal (applies to non-numeri c results) [facility] Bilirubin,Total 0.2-1.3 Normal (applies to non-numeric results) [facility] SGOT(AST) 20 U/L 17-59 Normal (applies to non-numeric resul ts) [facility] SGPT(ALT) 49 U/L 21-72 Normal (applies to non-numeric resul ts) [facility] Alkaline Phosphatase 58 U/L 38-126 Normal (applies to non-num mauricio results) [facility] can increase Alkaline Phosp le vels up to 2 times the normal adult value. Normal values for children and adolescents are 2 to 3 times the normal adult value. Total Protein 6.3-8.2 Normal (applies to non-numeric re sults) [facility] Albumin 3.5-5.0 Normal (applies to non-numeric resul ts) [facility] ID Date Data Source [id number] 08/07/2019 10:05:00 PM EDT [facility] Name Value Range Interpretation Code Description Data Mia rce(s) Supporting Document(s) Magnesium 1.80-2.40 Normal (applies to non-numeric resul ts) [facility] ID Date Data Source [id number] 08/07/2019 10:05:00 PM EDT [facility] Name Value Range Interpretation Code Description Data Mia rce(s) Supporting Document(s) C-Reactive Protein,Wide Range <3.00 Normal (applies t o non-numeric results) [facility] ID Date Data Source [id number] 08/07/2019 10:05:00 PM EDT [facility] Name Value Range Interpretation Code Description Data Mia rce(s) Supporting Document(s) Lipase 48 U/L 73-393 Below low normal [facility] ID Date Data Source [id number] 08/07/2019 09:57:00 PM EDT [facility] Name Value Range Interpretation Code Description Data Mia rce(s) Supporting Document(s) White Blood Count 4.8-10.8 Above high normal [facility] Red Blood Count 4.35-6.08 Above high normal [facility] Hemoglobin 13.0-17.5 Above high normal [facility] Hematocrit 37.7-51.0 Normal (applies to non-numeric resul ts) [facility] Mean Corpuscular Volume 80-94 Normal (applies to non- numeric results) [facility] Mean Corpuscular Hemoglobin 27.0-33.0 Normal (appli es to non-numeric results) [facility] Mean Corpuscular HGB Conc 32.0-36.0 Normal (applies to no n-numeric results) [facility] Red Cell Distribution Width 11.5-14.5 Normal (appli es to non-numeric results) [facility] Platelet Count 210 X10 3/uL 130-450 Normal (applies to non-numeric results) [facility] Mean Platelet Volume 9.6-13.1 Normal (applies to non-num mauricio results) [facility] Imm Grans% (AUTO) 0 % 0-2 Normal (applies to non-numeri c results) [facility] Neutrophils % (AUTO) 86 % 40-75 Above high normal [facility] Lymphocytes % (AUTO) 4 % 21-46 Below low normal [facility] Monocytes % (AUTO) 9 % 5-12 Normal (applies to non-numer ic results) [facility] Eosinophils % (AUTO) 0 % 1-5 Below low normal [facility] Basophils % (AUTO) 0 % 0-1 Normal (applies to non-numer ic results) [facility] Imm Grans# (AUTO) 0.00-0.50 Normal (applies to non-numeri c results) [facility] Neutrophils # (AUTO) 1.5-8.1 Above high normal [facility] Lymphocytes # (AUTO) 1.0-3.1 Below low normal [facility] Monocytes # (AUTO) 0.2-1.3 Above high normal Can [facility] Eosinophils# (AUTO) 0.0-0.5 Normal (applies to non-nume ana results) [facility] Basophils # (AUTO) 0.00-0.10 Normal (applies to non-numer ic results) [facility] ID Date Data Source [id number] 08/07/2019 10:26:00 PM EDT [facility] Hospital Name: [facility]REV[facility] Viri : 1990 A ge/Sex: 28M Ordering Provider: Dong Capellan MD Med Rec #: [id number] Reg Status: REG ER Room #: Date of Service: 08/07/19 Report Number: [id number] cc:Dong Capellan MD; Patti Segovia IV, ERIN [...] 08/07/192225 Dictation Date/Time: 08/07/192225 Transcribed Date/Time: 08/07/192225 [employer]: Name Value Range Interpretation Code Description Data Mia rce(s) Supporting Document(s) Procedure
[2020-06-14] MEDS ORDERED: AMIODARONE HCL 150 MG in IV 1 EA IV ONE ×2 (02:30→03:45)
[2020-06-14 06:30] VITALS: BP 122/70
[2020-06-14] MEDS ORDERED: CARD120C3 PO (06:41)
[2020-06-14 06:45] VITALS: BP 122/70
--- NOTE | 2020-06-14 20:51 | ECGEPIP ---
[facility] - ED Test Date: 2020-06-14 Pat Name: JOE DAY Department: Room: - Gender: Male [facility] Justice: TERESA : 1990 Requested By: RUSSEL Rachel Order Number: [id number] Reading MD: Sabi Watkins Measurements Intervals [place] Rate: 155 P: SC: 0 QRS: -9 QRSD: 89 T: 25 QT: 274 QTc: 441 Interpretive Statements ATRIAL FIBRILLATION WITH RAPID VENTRICULAR RESPONSE POSSIBLE RIGHT VENTRICULAR CONDUCTION DELAY NONSPECIFIC ST & T-WAVE ABNORMALITY ABNORMAL RHYTHM ECG 07/17/18 sinus rhythm Electronically Signed on 06-14-2020 20:51:15 EST by Sabi Watkins
== END 2020-06-14 06:55 | disposition home or self-care (01) ==
LOC: M ED 00:04
DX: I48.91 Unspecified atrial fibrillation (principal)
CPT/HCPCS: 71045; 80048; 82550; 82553; 83735; 84439; 84443; 84484; 85025; 93005; 93041; 94760; 96374; 96375; 96376; 99285; J0282

== ENCOUNTER → 2020-09-12 | Outpatient (CLI) | payer BC ==
[~2020-09-12] MED LIST: CARD120C3 PO; LISI10TA22 PO; ZONI25CA13 PO; ZONI50CA11 PO
== END ==
LOC: M LABSMTC 09:37
PROVIDERS: ATTEND Internal Medicine Cardiovascular Disease
DX: Z01.812 Encounter for preprocedural laboratory examination (principal); I48.0 Paroxysmal atrial fibrillation; Z20.822 Contact with and (suspected) exposure to COVID-19